=== PATIENT | female | born 1940 | race Caucasian/White ===

== ENCOUNTER 2016-07-01 16:41 | Emergency (ER) | payer OTHER ==
[~2016-07-01 16:41] MED LIST: /LINE60TA OR; /PANT40TA; /WARF2TA; /WARF5TA; ACET500C OR; ACET65TA; AMLO5TAB; APRESOLINE PO; AQUAOIN2; ASPI325T; ASPI81TA83 OR; BACITAB3 PO; BENA40TA2; BYST10TA2 PO; BYST5TAB2 PO; CALC05CR TOP; CALC1CAP PO; CEFT500T; CETI5TAB2; CHOLECALCIFEROL; CLIN1CAP5 PO; COLA100C3 PO; COUM1TAB; COUM2TAB10 PO; DARB100SYR IV; DARB60SYR; DEMA1TAB4 PO; DIAB2.5T; DIGO0.12 PO; DIGO0.126 OR; ELIDEL; FOLI1TAB; FOLI1TAB2 PO; FOLI400T OR; FOLI400T PO; FURO20TA2 PO; HYDR-4266 PO; KEFL500C7 PO; LAB; LANO0.1211; LOTRCRE TOP; METH2.5T; METH2.5T OR; MINEOIL3; MULTIVIT PO; NATE60TA PO; NATE60TA5 PO; NATEGLINIDE PO; NITR0.4S; NITR4TASL SL; NYST100024 TOP; NYSTATIN POWDER TOP; PHOS667C5 PO; PHOSLO PO; PHOSLO667 MG; PHOSLO667 MG OR; POTA10TA16 PO; PROT0.1O TOP; RHEU2.5T PO; SIMV20TA2 OR; SIMV40TA2 PO; SYNALAR; THERGRAN; TORS10TA3 PO; TRIA1CR TOP; TRIAMCINOLONE; TRIAMCINOLONE TOP; TYLE325T5 PO; ULTR0.0510 TOP; ULTR50TA PO; VENL37.5; VERA120T AD; VERA120T2 PO; VERAPAMIL; VICO5TAB; VITA250T; VITAMIN D50000 UNT; WARF4TAB52 PO; ZEBE5TAB; ZOCO20TA; ZOCO20TA PO; ZOCO5TAB; [UNRECOGNIZED DRUG - CODE] PO; [UNRECOGNIZED DRUG - OTHER]; [UNRECOGNIZED DRUG - OTHER]; [UNRECOGNIZED DRUG - OTHER]
[2016-07-01] MEDS ORDERED: NS 1,000 ML IV SCH (16:46)
[2016-07-01] MEDS ORDERED: WARF05TA GT (16:57)
[2016-07-01] MEDS ORDERED: ASPI81CH PO (16:57)
[2016-07-01] MEDS ORDERED: PLAV75TA38 PO (16:57)
[2016-07-01] MEDS ORDERED: COUM2TAB10 PO (16:57)
[2016-07-01] MEDS ORDERED: METO37.5 PO (16:57)
[2016-07-01] MEDS ORDERED: GLIP5TAB8 PO (16:58)
[2016-07-01] MEDS ORDERED: LISI-542 PO (16:58)
[2016-07-01] MEDS: METOPROLOL 5 MG/5 ML VIAL IV SCH ×3 (17:08→17:20)
[2016-07-01 17:11] VITALS: O2SAT 98
[2016-07-01 17:15] VITALS: BP 111/62
[2016-07-01 17:18] LABS: INR 2.71
[2016-07-01 17:19] LABS: BASO % 0.4 % (0.0-1.0); EOS # 0.7 K/mm3 (0.0-0.50); EOS % 6.4 % (0.0-3.0); LARGE UNSTAINED CELL # 0.1 K/mm3 (0.0-0.4); LARGE UNSTAINED CELL % 0.9 % (0.0-4.0); LYMPH # 1.4 K/mm3 (1.5-4.5); LYMPH % 13.1 % (24.0-44.0); MEAN CORPUSCULAR HEMOGLOBIN 28.2 pg (27.0-33.0); MEAN CORPUSCULAR HGB CONC 31.3 g/dl (32.0-36.5); MEAN CORPUSCULAR VOLUME 90.3 fl (80.0-96.0); MONO # 0.3 K/mm3 (0.0-0.8); MONO % 3.3 % (0.0-5.0); NEUTROPHILS # 7.8 K/mm3 (1.8-7.7); NEUTROPHILS % 75.9 % (36.0-66.0); PLATELET COUNT, AUTOMATED 189 k/mm3 (150-450); RED CELL DISTRIBUTION WIDTH 15.4 % (11.5-14.5); WHITE BLOOD COUNT 10.3 K/mm3 (4.0-10.0)
[2016-07-01 17:27] LABS: ALBUMIN 3.5 GM/DL (3.2-5.2); ALBUMIN/GLOBULIN RATIO 0.78 (1.00-1.93); BILIRUBIN,DIRECT 0.2 MG/DL (0.0-0.2); BILIRUBIN,TOTAL 0.8 MG/DL (0.2-1.0); CALCIUM LEVEL 8.1 MG/DL (8.8-10.2); CREATININE FOR GFR 2.22 MG/DL (0.55-1.02); FREE T4 1.46 NG/DL (0.76-1.46); GLOMERULAR FILTRATION RATE 22.9 (>39); POTASSIUM SERUM 3.7 MEQ/L (3.5-5.1)
[2016-07-01] MEDS ORDERED: ISOVUE-370 76% 100ML VIAL (Q9967) As Ordered ONE (17:48)
--- NOTE | 2016-07-01 18:12 | REP ---
Portable chest x-ray: Sitting AP view: History: Chest pain. Findings: A tunnel catheter is noted via the right side with its tip in the expected location of the superior vena cava. A bipolar pacemaker is seen in the right heart via the left side. EKG monitoring electrodes are noted. The lungs are symmetrically aerated and free of infiltrate. Pleural angles are sharp. Heart is not enlarged. The aorta is calcific and tortuous. There is diffuse osteopenia. Impression: No acute disease. Tunnel catheter and pacemaker seen. Signed by Rajiv Jasso MD 07/01/2016 07:55 P
[2016-07-01] MEDS ORDERED: AMIODARONE HCL 150 MG in APPROPRIATE DILUENT 1 EA IV STA (18:16)
[2016-07-01 18:41] LABS: DIGOXIN LEVEL 1.2 NG/ML (0.5-2.0)
--- NOTE | 2016-07-01 19:22 | REP ---
CT study of the brain without contrast: History: Injury in a fall. Findings: There are multiple calcified scalp nodules noted bilaterally. No skull fracture or bony destructive lesion is seen. There is a small air-fluid level in the sphenoid sinus. I do not see a skull base fracture. Mastoid aeration is normal and symmetric. The other paranasal sinuses are clear. No intraorbital abnormality is seen. There is diffuse mild to moderate cerebral atrophy. There is no evidence of intracranial hemorrhage. No extra-axial fluid collection is seen. No mass or midline shift is seen. Vascular calcification is seen in the distal vertebral and carotid arteries. No evidence of infarct. Impression: 1. No skull fracture or intracranial injury. 2. Vascular calcification and diffuse atrophy. 3. Multiple calcified scalp nodules noted bilaterally. Findings are essentially unchanged from 12/06/2007 although the diffuse atrophy has progressed somewhat. Signed by Rajiv Jasso MD 07/01/2016 07:57 P
--- NOTE | 2016-07-01 19:23 | REP ---
CT pulmonary angiogram: With IV contrast. History: Chest pain. Comparison studies: Comparison noncontrast chest CT study is from 07/08/2014. Contrast dose: 100 mL of Isovue [address] technique: Helical scanning is acquired and overlapping 1.5 mm and contiguous 3 mm axial images are reformatted. In addition, a 3-D work station is deployed to generate thick slab maximum intensity projection images in sagittal and coronal imaging projections. CT pulmonary angiographic findings: There is good opacification of the pulmonary arterial tree. There is no CT evidence of pulmonary embolism. Thoracic aorta shows vascular calcification but no evidence of aneurysm or dissection. There is left coronary artery vascular calcification as well. Maximum intensity projection images show no evidence of vessel cutoff or filling defect to suggest a thrombus. Pulmonary parenchymal window settings show no evidence of infiltrate, mass, or atelectasis. No pleural or pericardial effusion is seen. There is some linear fibrosis in the right lung apex. No bony destructive lesion is seen. Incidental note is made of cholelithiasis. A tunneled catheter is noted in place in the right internal jugular vein terminating in the superior vena cava. Impression: 1. No CT evidence of pulmonary embolism. 2. Vascular calcification including left coronary artery calcification. 3. Pacemaker and tunneled central venous catheter is noted. 4. Cholelithiasis. Signed by Rajiv Jasso MD 07/01/2016 07:57 P
--- NOTE | 2016-07-01 19:26 | REP ---
CT abdomen and pelvis with IV and without oral contrast: History: Chest pain. History of recent L1 compression fracture. Comparison CT abdomen study is from 08/13/2010. CT contrast dose: 100 mL of Isovue [address] findings: Digital preliminary sap data architect radiograph demonstrates an unremarkable bowel gas pattern. The liver and spleen are normal in size homogeneous in texture. Radiolucent gallstones are visible in the gallbladder lumen as before. No pancreatic abnormality is observed. There is marked bilateral renal cortical atrophy. No hydronephrosis is seen. No adrenal mass is observed. There is an accessory splenule. No retroperitoneal mass or adenopathy is seen. Small and large bowel loops are unremarkable in the abdomen and pelvis. No uterine or adnexal mass lesion is seen. A short normal appendix is visible just medial to the cecal tip. There appear to be arterial stents in the proximal renal arteries bilaterally. Bone window settings show degenerative spondylosis changes in the lumbar spine. In addition, there is a mild wedge compression fracture deformity at the L1 vertebral body with approximate 20% loss of anterior vertebral body height and buckling of the anterior cortex. There is some healing sclerosis in the L1 vertebral body indicating that this is a subacute injury. No visible retropulsion or epidural fluid collection seen. There is degenerative disc disease at L1-L2 and at T12-L1 with vacuum phenomenon at these two levels. Mild posterior osteophytic ridging is seen on the right at L1-L2. There is central disc bulging and moderate central canal stenosis in the lumbar spine at L3-4. This is due in part also to ligamentum flavum and facet hypertrophy. At the L4-5 there is degenerative disc disease and advanced osteoarthritic facet disease bilaterally producing a degenerative grade 1 L4-5 3 mm spondylolisthesis. There is mild to moderate central canal stenosis at L4-5. There is mild central disc bulging to the left midline at L5-S1 but no significant thecal sac compression is seen. No bony destructive lesion is seen. No abdominal wall defect is observed. Impression: 1. Cholelithiasis. 2. Marked bilateral renal cortical atrophy, right greater than left. 3. No other acute intra-abdominal abnormality. 4. Subacute wedge compression fracture deformity at L1 with healing sclerosis and 20% loss vertebral body height. No evidence of retropulsion or epidural collection. 5. Degenerative spondylosis changes with significant central canal stenosis at L3-4 and L4-5 and a degenerative grade 1, L4-5 spondylolisthesis. No spondylolysis. Signed by Rajiv Jasso MD 07/01/2016 07:58 P
[2016-07-01] MEDS ORDERED: METO25TAB PO (20:37)
[2016-07-01] MEDS ORDERED: ASPI81TA7 PO (20:37)
[2016-07-01] MEDS ORDERED: WARF4TAB51 PO (20:42)
[2016-07-01] MEDS ORDERED: VERA120T2 PO (20:45)
[2016-07-01] MEDS ORDERED: CINA30TA PO (20:45)
[2016-07-01] MEDS ORDERED: PATIENT COMMENT (20:45)
[2016-07-02 00:19] VITALS: BP 143/62
--- NOTE | 2016-07-02 07:28 | ECGEPIP ---
Stationary ECG Study [facility] Test Date: 2016-07-01 Pat Name: POONAM TURNER Department: Room: - Gender: F Director Payer: : 1940 Requested By: Sarah Licona Order Number: [id number] Reading MD: Ramo Grissom Measurements Intervals [place] Rate: 60 P: 145 [place]: 176 QRS: 61 QRSD: 108 T: 68 QT: 393 QTc: 393 Interpretive Statements ELECTRONIC ATRIAL PACEMAKER NONSPECIFIC ST & T-WAVE ABNORMALITY ABNORMAL RHYTHM ECG Electronically Signed On 07-02-2016 7:28:18 EDT by Ramo Grissom
--- NOTE | 2016-07-02 20:18 | ECGEPIP ---
Stationary ECG Study [facility] - ED Test Date: 2016-07-01 Pat Name: POONAM TURNER Department: Room: - Gender: F Stewarding Supervisor: dannie : 1940 Requested By: Sarah Licona Order Number: [id number] Reading MD: Vanessa Ribera Measurements Intervals [place] Rate: 126 P: [place]: 0 QRS: 54 QRSD: 94 T: 97 QT: 308 QTc: 446 Interpretive Statements ATRIAL FIBRILLATION WITH RAPID VENTRICULAR RESPONSE WITH ABERRANT CONDUCTION OR VENTRICULAR PREMATURE COMPLEXES MINIMAL VOLTAGE CRITERIA FOR LVH, CONSIDER NORMAL VARIANT MARKED ST DEPRESSION, CONSIDER SUBENDOCARDIAL INJURY, CLINICAL CORRELATION PRIOR 21:53 Electronically Signed On 07-02-2016 20:17:38 EDT by Vanessa Ribera
--- NOTE | 2016-07-02 20:22 | ECGEPIP ---
Stationary ECG Study [facility] - ED Test Date: 2016-07-01 Pat Name: POONAM TURNER Department: Room: - Gender: F Sports Athletic Trainer: : 1940 Requested By: Sarah Licona Order Number: [id number] Reading MD: Vanessa Ribera Measurements Intervals [place] Rate: 78 P: 92 [place]: 180 QRS: 48 QRSD: 97 T: 53 QT: 356 QTc: 407 Interpretive Statements SINUS RHYTHM MODERATE ST DEPRESSION INCREASED RATE 07/01/16 Electronically Signed On 07-02-2016 20:22:43 EDT by Vanessa Ribera
== END 2016-07-02 00:26 | disposition short-term general hospital (02) ==
LOC: M ED 17:24
DX: I21.4 Non-ST elevation (NSTEMI) myocardial infarction (principal); R93.0 Abnormal findings on diagnostic imaging of skull and head, not elsewhere classified; M51.36 Other intervertebral disc degeneration, lumbar region; K80.20 Calculus of gallbladder without cholecystitis without obstruction; N26.1 Atrophy of kidney (terminal); I70.90 Unspecified atherosclerosis; Z95.0 Presence of cardiac pacemaker; I25.10 Atherosclerotic heart disease of native coronary artery without angina pectoris; I25.2 Old myocardial infarction; E11.9 Type 2 diabetes mellitus without complications; I10 Essential (primary) hypertension; Z95.5 Presence of coronary angioplasty implant and graft; Z79.82 Long term (current) use of aspirin; Z79.899 Other long term (current) drug therapy; Z79.01 Long term (current) use of anticoagulants; Z88.1 Allergy status to other antibiotic agents; Z88.0 Allergy status to penicillin; Z88.2 Allergy status to sulfonamides; Z88.8 Allergy status to other drugs, medicaments and biological substances
CPT/HCPCS: 70450; 71010; 71275; 74177; 80048; 80076; 80162; 82550; 82553; 83690; 83735; 83880; 84439; 84443; 84484; 85025; 85610; 85730; 86850; 86900; 86901; 93005; 93041; 94760; 96361; 96374; 96375; 99285; Q9967

== ENCOUNTER 2016-10-21 09:01 | Day surgery (SDC) | payer OTHER ==
[~2016-10-21] VITALS: Ht 162.6 cm; Wt 60.8 kg
[~2016-10-21 09:01] MED LIST changes: +ASPI1TAB15 PO; +ASPI81CH PO; +BACITAB PO; -BACITAB3 PO; +CINA30TA PO; +CLIN150C14 PO; -CLIN1CAP5 PO; -COLA100C3 PO; +COLA100C5 PO; -COUM2TAB10 PO; +COUM2TAB22 PO; +D5W/0.2% SODIUM CHLORIDE 250 ML IV ONE; +FAMO1TAB11 PO; -FOLI1TAB2 PO; +FOLI1TAB4 PO; +GLIP5TAB8 PO; +HYDR-3910 PO; -HYDR-4266 PO; +KEFL500C17 PO; -KEFL500C7 PO; +LISI-542 PO; +METO-346 PO; +METO25TA4 PO; +METO37.5 PO; +NS 1,000 ML IV SCH; -NYST100024 TOP; +NYST1POW9 TOP; +PATIENT COMMENT; +PLAV1TAB2 PO; -ULTR50TA PO; +ULTR50TA8 PO; +WARF05TA GT; +WARF4TAB51 PO
[2016-10-21 09:43] LABS: INR 1.03
[2016-10-21 10:05] LABS: POTASSIUM SERUM 4.6 MEQ/L (3.5-5.1)
[2016-10-21] MEDS ORDERED: fentaNYL 100 MCG/2 ML INJECTION (J3010) As Ordered ONE (10:53)
[2016-10-21] MEDS ORDERED: MIDAZOLAM INJ 2 MG/2 ML VIAL (J2250) As Ordered ONE (10:53)
[2016-10-21] MEDS ORDERED: LIDOCAINE 2% INJ 100 MG/5 ML SDV (FOR ANES.) As Ordered ONE (10:53)
[2016-10-21] MEDS ORDERED: PROPOFOL 200 MG/20 ML VIAL As Ordered ONE (10:53)
[2016-10-21] MEDS ORDERED: LR 500 ML IV ONE (11:15)
[2016-10-21 11:22] LABS: CALCIUM LEVEL 8.9 MG/DL (8.8-10.2); CREATININE FOR GFR 6.53 MG/DL (0.55-1.02); GLOMERULAR FILTRATION RATE 6.6 (>39)
[2016-10-21] MEDS ORDERED: LIDOCAINE 1% SDV INJ 30 ML VIAL As Ordered ONE (11:30)
[2016-10-21] MEDS ORDERED: HEPARIN SOD (PORCINE) 5000 UNITS/ML VIAL As Ordered ONE (11:30)
[2016-10-21] MEDS ORDERED: ONDANSETRON 4MG/2ML VIAL (J2405) As Ordered ONE (13:14)
[2016-10-21] MEDS ORDERED: DEXTROSE 50% 50 ML SYRINGE As Ordered ONE (14:16)
[2016-10-21] MEDS ORDERED: DEXTROSE 50% 50 ML SYRINGE IV ONE (15:00)
[2016-10-21 15:30] VITALS: BP 153/70
--- NOTE | 2016-10-23 14:41 | RO ---
DATE OF PROCEDURE: 10/21/2016 PREOPERATIVE DIAGNOSIS: End-stage renal disease. POSTOPERATIVE DIAGNOSIS: End-stage renal disease. PROCEDURE PERFORMED: Implantation of continuous ambulatory peritoneal dialysis catheter. SURGEON: Dr. Mj Dubose FLAT SPRING ASSEMBLER: ANESTHESIA: Local, 1% Xylocaine with monitored anesthesia care INDICATIONS FOR PROCEDURE: The patient is a 76-year-old woman who has been on hemodialysis via a chest catheter for some time. She is now for placement of a peritoneal dialysis catheter to allow home dialysis. DESCRIPTION OF PROCEDURE: The patient was placed supine on the operating table. She received sedation from anesthesia. The patient's abdomen was prepped and draped in a sterile fashion. A site was selected in the left lower quadrant for placement of the catheter. 1% lidocaine was infiltrated. A roughly 4-5 cm longitudinal paramedian incision was made beginning just about at the level of the umbilicus and extending inferiorly. The incision was deepened through the subcutaneous tissues. The anterior rectus sheath was opened longitudinally. The rectus muscle fibers were spread and a small opening was created through the posterior fascia and peritoneum. A pursestring suture of #2-0 Vicryl was placed around the opening in the peritoneum. The 62-cm double-pledgeted Campbell peritoneal dialysis catheter was selected. This was placed over a long stylet. Unfortunately, the stylet was slightly shorter than the catheter, so it was necessary to insert the tip of the catheter into the opening using forceps and then advance the stylet into the abdomen. This was placed with the patient in a slight Trendelenburg position and with elevation of the anterior abdominal wall. The catheter was then slipped off of the stylet without difficulty. The pursestring suture was tied down, closing the peritoneum. It was necessary to place an additional one or two Vicryl sutures to better approximate this opening. The catheter was positioned with the inner pledget just adjacent to the peritoneum. The pursestring suture was tied about the pledget to prevent the catheter from slipping back. The rectus muscle fibers were allowed to come together about the pledget and the anterior sheath was then closed with a running suture of #0 Vicryl. The catheter was tunneled through the subcutaneous tissues to the left and inferiorly, and the catheter was brought through a small stab wound in the skin. The infusion port was attached to the end of the catheter. Approximately 1 liter of sterile saline was then allowed to infuse while the paramedian incision was closed. Hemostasis was ensured with the cautery. The subcutaneous tissues were closed with chromic, and the skin edges were approximated with a running subcuticular #4-0 Vicryl. Once the fluid was nearly completely infused, with the patient had a slight reverse Trendelenburg position , the bag was dropped to the floor and approximately 800 mL of fluid returned by gravity siphon. The patient tolerated all of this very well. The catheter was filled with 1 mL 5000 units/mL heparin and approximately 1.2 mL of sterile saline. The catheter exit site was dressed with a chlorhexidine gluconate OpSite. Steri-Strips and a sterile dressing were placed over the paramedian incision. The catheter was coiled beneath a 4 x 4 and an occlusive dressing of OpSite bandages was applied. The patient tolerated the procedure well without apparent complication. She was awakened and transported to advanced recovery in stable condition. SHERYL
[2016-12-31] MEDS ORDERED: AMOX500C PO (09:56)
== END 2016-10-21 15:35 | disposition home or self-care (01) ==
LOC: M SDC 09:01 → EEVIPCON 09:01 → M SDC 15:35
PROVIDERS: ATTEND Surgery
DX: N18.6 End stage renal disease (principal); E11.9 Type 2 diabetes mellitus without complications; I48.91 Unspecified atrial fibrillation; I25.2 Old myocardial infarction; I50.9 Heart failure, unspecified; Z79.02 Long term (current) use of antithrombotics/antiplatelets; I73.9 Peripheral vascular disease, unspecified; Z98.61 Coronary angioplasty status; Z95.0 Presence of cardiac pacemaker; Z79.899 Other long term (current) drug therapy; Z88.0 Allergy status to penicillin; Z88.2 Allergy status to sulfonamides; Z88.8 Allergy status to other drugs, medicaments and biological substances
CPT/HCPCS: 36415; 49421; 80048; 85610; J0690; J2250; J2405; J3010

== ENCOUNTER → 2016-12-03 | Outpatient (REF) | payer OTHER ==
[~2016-12-03] MED LIST changes: +AMOX500C PO; -D5W/0.2% SODIUM CHLORIDE 250 ML IV ONE; -NS 1,000 ML IV SCH; +RENATAB5 PO; +WARF05TA
== END ==
LOC: M SFHCCLAY 16:19
PROVIDERS: ATTEND Family Medicine
DX: N39.0 Urinary tract infection, site not specified (principal)

== ENCOUNTER 2016-12-19 12:24 | Inpatient (IN) | payer MEDICARE, OTHER ==
[2016-12-19] VITALS (14 sets, daily range): BP systolic 130–183; BP diastolic 61–88
[~2016-12-19] VITALS: Ht 162.6 cm; Wt 63.2 kg
[~2016-12-19 12:24] MED LIST changes: -AMOX500C PO; -RENATAB5 PO; -WARF05TA
[2016-12-19] MEDS ORDERED: WARF05TA (12:38)
[2016-12-19 13:21] LABS: BASO % 0.2 % (0.0-1.0); EOS # 0.1 10^3/uL (0.0-0.50); EOS % 2.3 % (0.0-3.0); IMMATURE GRANULOCYTE % 0.2 % (0-0); LYMPH # 1.2 10^3/uL (1.5-4.5); LYMPH % 21.3 % (24.0-44.0); MEAN CORPUSCULAR HEMOGLOBIN 30.2 pg (27.0-33.0); MEAN CORPUSCULAR HGB CONC 32.2 g/dl (32.0-36.5); MEAN CORPUSCULAR VOLUME 93.9 fl (80.0-96.0); MONO # 0.4 10^3/uL (0.0-0.8); MONO % 6.8 % (0.0-5.0); NEUTROPHILS % 69.2 % (36.0-66.0); PLATELET COUNT, AUTOMATED 143 10^3/uL (150-450); RED CELL DISTRIBUTION WIDTH 16.1 % (11.5-14.5); WHITE BLOOD COUNT 5.7 10^3/uL (4.0-10.0)
[2016-12-19 13:45] LABS: ALBUMIN 2.8 GM/DL (3.2-5.2); ALBUMIN/GLOBULIN RATIO 0.68 (1.00-1.93); BILIRUBIN,DIRECT 0.2 MG/DL (0.0-0.2); BILIRUBIN,TOTAL 0.7 MG/DL (0.2-1.0); TOTAL PROTEIN 6.9 GM/DL (6.4-8.2)
[2016-12-19 14:06] LABS: INR 1.4
[2016-12-19 14:06] LABS: CALCIUM LEVEL 8.5 MG/DL (8.8-10.2); CREATININE FOR GFR 5.21 MG/DL (0.55-1.02); GLOMERULAR FILTRATION RATE 8.5 (>39); POTASSIUM SERUM 3.2 MEQ/L (3.5-5.1)
--- NOTE | 2016-12-19 14:14 | REP ---
REASON: Dyspnea. COMPARISON: 07/01/2016 Since the last examination, near complete opacification of the right hemithorax has developed. The central venous catheter is unchanged. The pacemaker device is unchanged. There is silhouetting out of the right border. The left lung is clear and stable. There is no change in the osseous structures. IMPRESSION: Near complete opacification of the right hemithorax suggesting diffuse pneumonitis/large pleural effusion/marked atelectasis. Clinical correlation is necessary. Other findings as described above. Signed by Gee Corbett DO 12/19/2016 02:19 P
[2016-12-19] MEDS ORDERED: METO25TA4 PO (14:56)
[2016-12-19] MEDS ORDERED: WARF4TAB52 PO ×2 (14:56)
[2016-12-19] MEDS ORDERED: RENATAB5 PO (14:56)
[2016-12-19 15:53] LABS: ABG BASE EXCESS 6.5 (-2.0-2.0); ABG HCO3 31.3 MEQ/L (22.0-26.0); ABG PARTIAL PRESSURE CO2 45.7 mmHg (35.0-45.0); ABG PARTIAL PRESSURE O2 121.2 mmHg (75.0-100.0); ABG STANDARD HCO3 30.4 MEQ/L (22.0-26.0); ABG TOTAL CO2 32.7 MEQ/L (23.0-31.0); ABG pH (ARTERIAL) 7.453 UNITS (7.350-7.450)
[2016-12-19] MEDS ORDERED: GLUCOSE 4 GM CHEW TABLET PO PRN (16:00)
[2016-12-19] MEDS ORDERED: GLUCAGON FOR INJ 1 MG VIAL (J1610) SC PRN (16:00)
[2016-12-19] MEDS ORDERED: DEXTROSE 50% 50 ML SYRINGE IV PRN (16:00)
[2016-12-19] MEDS ORDERED: NITROGLYCERIN 0.4 MG SUBL TABLET SL PRN (16:00)
[2016-12-19] MEDS ORDERED: DOCUSATE SODIUM 100 MG CAP PO PRN (16:00)
[2016-12-19] MEDS ORDERED: ONDANSETRON 4 MG TAB (S0181) PO PRN (16:00)
--- NOTE | 2016-12-19 17:24 | HPEPDOC ---
[facility] Medical History & Physical History and Physical PRIMARY CARE PROVIDER: Dr. Soto CHIEF COMPLAINT: Shortness of breath HISTORY OF PRESENT ILLNESS: Patient is a 76-year-old female who presents with a 3 day history of worsening shortness of breath. Patient was brought into the ER today due to worsening shortness of breath, tachypnea, oxygen saturation in the low 80s. Her who is a retired physician listen to her lungs and was unable to appreciate any breath sounds on her right side. She additionally reports that she was becoming diaphoretic with activity. She denies any chills, sweats. She does report weight loss of approximately 40 pounds over the last couple years. She is complaining of tightness and pressure across her chest which she gets with activity. ALLERGIES: Azithromycin, clavulanic acid, penicillin, penicillin cross reactors, quinolones , sulfa drugs, tazobactam, tetracycline PAST MEDICAL HISTORY: Atrial fibrillation Hypertension Hyperlipidemia Psoriasis DVT with pulmonary embolism: May 2012 Yiy-fahnlcy-clepibqgl diabetes mellitus Depression End-stage renal disease PAST SURGICAL HISTORY: Pacemaker Left ureteral stent SOCIAL HISTORY: Patient lives at home with her . She is a nonsmoker. She does not drink any alcohol. She does not use any recreational drugs. She drinks 2 cups of coffee daily. CODE STATUS: DNR/DNI REVIEW OF SYSTEMS: Constitutional: Positive for sweats, reported weight loss of approximately 40 pounds over the last couple years. Denies fevers, chills. HEENT: Head: Positive for lightheadedness. Eyes: Positive for chronic macular degeneration. Ears: denies hearing loss, tinnitus, ear pain. Nose: Positive for congestion. Throat: denies sore throat, cough, difficulty swallowing Cardiovascular: Positive for tightness and pressure and chest which is described as diffuse and worse with activity Respiratory: Positive for worsening shortness of breath for duration of the last 3 days Gastrointestinal: Positive for bright red blood per rectum, currently on Plavix and Coumadin. denies nausea, vomiting, diarrhea, constipation, abdominal pain, melena : Positive for end-stage renal disease, minimal urine output, incontinence Musculoskeletal: denies muscle / joint stiffness, pain, swelling Neurological: denies numbness, tingling, paresthesias Integumentary: Positive for diffuse easy bruising, currently on Plavix and Coumadin Endocrine: Positive for polydipsia PHYSICAL EXAMINATION: Vitals: Temperature 96.0, pulse 66, respiratory rate 22, blood pressure 163/93, pulse ox 100% on 4 L nasal cannula General: Patient seated comfortably, alert and oriented, verbal and able to answer questions appropriately. Patient does not appear to be in any acute distress HEENT: Head: normocephalic, atraumatic. Eyes: pupils equally reactive to light , conjunctiva are pink, sclera are nonicteric. Throat: buccal mucosa is pink and moist with no lesions in the oropharynx Respiratory: There are absent breath sounds present on right side of chest, wheezing on left-sided chest Cardiovascular: Regular rate and rhythm, normal S1-S2. 3/6 systolic murmur best appreciated at lower left sternal border Abdomen: soft, nontender, nondistended, no hepatosplenomegaly appreciated. Bowel sounds present. Extremities: 5/5 strength in upper and lower extremities bilaterally, no swelling in either lower extremity bilaterally Neurological: sensation intact and symmetrical in upper and lower extremities bilaterally Lymphatics: no palpable lymph nodes, swollen glands Integumentary: Positive for diffuse bruising Vascular: pulses palpable and symmetrical in upper and lower extremities bilaterally LABORATORY DATA: CBC: White blood cells 5.7, hemoglobin and hematocrit 11.3/35.1, platelets 143 Chemistry: Sodium 143, potassium 3.2, chloride 103, carbon dioxide 33, BUN 38, creatinine 5.21, calcium 8.5 Liver profile: AST 17, ALT 18, alkaline phosphatase 55, total protein 6.9, albumin 2.8 TSH 1.090 C-reactive protein 0.40 Cardiac markers: Troponin I 0.04, CK-MB 3.5 ProBNP 42904 Coagulation: PT 17.4, INR 1.40, APTT 29.3 MICROBOIOLOGY: Respiratory panel: Negative Influenza screen: Negative Blood culture 2 pending ELECTROCARDIOGRAM: Sinus rhythm at [address] depression RADIOLOGY: Chest x-ray: Near complete opacification of right hemithorax suggestive of diffuse pneumatosis/large pleural effusion/marked atelectasis Chest CT: Very large right pleural effusion, small left pleural effusion ASSESSMENT: 76-year-old female with bilateral pleural effusion (right >>left). She will require admission for further evaluation and treatment. PLAN: #1: Pleural effusion: Admit patient to PCU under care of Dr. Soto. Orders placed to monitor daily weight, I's and O's, vital signs as stated of care. Thoracic surgery consult was placed. Etiology of pleural effusion unclear at this time, we will follow-up results from thoracentesis when available. Further management as per results of thoracentesis. We will monitor daily CBC #2: End-stage renal disease: Nephrology consult with Dr. Vegas placed. Order placed for daily renal profile #3: Atrial fibrillation: Due to uncertain etiology of pleural effusion we will hold Plavix and warfarin at this time #4: Hypertension: Order placed for home dose of metoprolol 25 mg by mouth twice a day (hold for heart rate less than 60, systolic blood pressure less than 100) #5: Qvp-txkrkpl-dhavmxlsp diabetes mellitus: We will hold home glipizide, order placed for sliding scale insulin #6: Dyslipidemia: Order placed for home dose of simvastatin 20 mg by mouth daily at bedtime #7: DVT prophylaxis: Order placed for teds and sequentials My preceptor for this patient encounter was physically present in the building during the encounter and was fully available. As needed, all aspects of the patient interview, examination, medical decision making process, and medical care plan development were reviewed and approved by the preceptor. Preceptor is aware and concurs with the plan as stated in the body of this note and will attest to such by his/her cosignature. Laboratory Data CBC/BMP Laboratory Tests 12/19/16 13:00 Red Blood Count 3.74 L, Mean Corpuscular Volume 93.9, Mean Corpuscular Hemoglobin 30.2, Mean Corpuscular Hemoglobin Concent 32.2, Red Cell Distribution Width 16.1 H, Neutrophils (%) (Auto) 69.2 H, Lymphocytes (%) (Auto ) 21.3 L, Monocytes (%) (Auto) 6.8 H, Eosinophils (%) (Auto) 2.3, Basophils (%) (Auto) 0.2, Neutrophils # (Auto) 4.0, Lymphocytes # (Auto) 1.2 L, Monocytes # ( Auto) 0.4, Eosinophils # (Auto) 0.1, Basophils # (Auto) 0.0, Calcium Level 8.5 L , Total Creatine Kinase 69 Microbiology Microbiology 12/19/16 Blood Culture, Received Pending 12/19/16 Blood Culture, Received Pending 12/19/16 Influenza Virus Type A Antigen - Final, Complete 12/19/16 Influenza Virus Type B Antigen - Final, Complete 12/19/16 Respiratory Virus Panel (PCR) (ANAMIKA) - Final, Complete Home Medications Scheduled (Kamila-Randal) 1 Tab Tab, 1 TAB PO DAILY Amoxicillin (Amoxicillin) 500 Mg Cap, 500 MG PO Q8H Cinacalcet Hydrochloride (Sensipar) 30 Mg Tab, 30 MG PO Q2D Clopidogrel Bisulfate (Plavix) 75 Mg Tab, 75 MG PO DAILY Folic Acid (Folic Acid) 1 Mg Tab, 1 MG PO 3XW TUESDAY, TUESDAY, TUESDAY Glipizide (Glipizide) 5 Mg Tab, 5 MG PO DAILY Metoprolol Tartrate (Metoprolol Tartrate) 25 Mg Tab, 25 MG PO BID Simvastatin (Zocor) 20 Mg Tab, 20 MG PO QHS Warfarin Sod (Warfarin Sodium) 1 Mg Tab, 2 MG PO 2XW MON, FRI Warfarin Sod (Warfarin Sodium) 1 Mg Tab, 1.5 MG PO 5XW SUN,,TUE,,SAT Scheduled PRN Nitroglycerin (Nitrostat) 0.4 Mg Subl, 0.4 MG SL Q5MP PRN for CHEST PAIN Allergies Coded Allergies: Clavulanic Acid (Verified Allergy, Severe, rash with blisters, 12/31/16) Quinolones (Verified Allergy, Severe, SEVERE DERMATITIS, 12/31/16) Penicillins (Verified Allergy, Intermediate, PUSTULAR SKIN RXN, 12/31/16) Penicillins Cross Reactors (Verified Allergy, Intermediate, PUSTULAR SKIN RXN, 12/31/16) Sulfa Drugs (Verified Allergy, Intermediate, HIVES,PSORIASIS, 12/31/16) Sulfa Drugs Cross Reactors (Verified Allergy, Intermediate, HIVES, PSORIASIS, 12/31/16) Tazobactam (Verified Allergy, Intermediate, PUSTULAR SKIN RXN, 12/31/16) Azithromycin (Verified Allergy, Unknown, rash, 12/31/16) Attending Note Family Medicine Attending Note: I was present on site to supervise Katie Thomas D.O. (PGY-3). We discussed the history and exam. I confirmed the davies elements during my [id number] encounter with the patient. We conferred on the assessment and plan; I agree with the note as documented. (gastroenterology physician) KATIE THOMAS DO Dec 19, 2016 17:24 Abram Asencio MD Jan 11, 2017 20:21
[2016-12-19] MEDS: HumaLOG INSULIN (NovoLOG) PER UNIT SC SCH ×2 (17:30→21:00)
[2016-12-19] MEDS ORDERED: MIDAZOLAM INJ 2 MG/2 ML VIAL (J2250) As Ordered ONE (19:05)
[2016-12-19] MEDS ORDERED: LIDOCAINE 1% MDV 20ML VIAL As Ordered ONE (19:06)
[2016-12-19] MEDS ORDERED: FLUMAZENIL 0.5 MG/5 ML VIAL As Ordered ONE (19:07)
[2016-12-19] MEDS ORDERED: LEVALBUTEROL 1.25 MG/0.5 ML CONCENTRATE NEB NEB PRN (19:45)
[2016-12-19] MEDS ORDERED: BISACODYL 10 MG SUPP PR PRN (19:45)
[2016-12-19 20:28] LABS: LDH, BODY FLUID 24 U/L (NOT ESTABLISHED); TOTAL PROTEIN, BODY FLUID 0.3 G/DL (NOT ESTABLISHED)
[2016-12-19 20:29] LABS: BF MONONUCLEAR CELL % 80.6 % (0-0); BF POLYMORPHONUCLEAR CELL % 19.4 CELLS/uL (0-0); RBC BODY FLUID < 2000.000 CELLS/uL (<2000)
[2016-12-19 20:41] LABS: BF DIFF IF INDICATED? YES (NO)
[2016-12-19] MEDS: LEVALBUTEROL 1.25 MG/0.5 ML CONCENTRATE NEB NEB SCH (20:50)
[2016-12-19] MEDS: KETOROLAC 30 MG/ML VIAL (J1885) IV SCH ×2 (21:00→21:42)
[2016-12-19] MEDS: SIMVASTATIN 20 MG TAB PO SCH (21:41)
[2016-12-19] MEDS: HEPARIN SOD (PORCINE) 5000 UNITS/ML VIAL SC SCH (21:41)
[2016-12-19] MEDS: METOPROLOL TART 25 MG TABLET PO SCH (21:41)
--- NOTE | 2016-12-19 21:47 | CR ---
DATE OF CONSULTATION: 12/19/2016 The patient is seen at the request of Dr. Morales of the emergency room and Dr. Vegas of nephrology. HISTORY OF PRESENT ILLNESS: The patient is a 76-year-old white female who complains of increasing shortness of breath over the past 3 days. She has end stage renal disease, for which she was on hemodialysis, but started peritoneal dialysis approximately 3 months ago. Over the past 3 days she has become much more short of breath to such an extent that even just slightly moving around the house makes her short of breath. She denies having peripheral edema. She further denies orthopnea or paroxysmal nocturnal dyspnea. There has been no cough. No sputum production. No fever, chills, or sweats. There is no dysphagia. She has a reported 40 pound weight loss over the past 2 years. Chest x-ray was obtained in the emergency room, which showed complete opacification of the right hemithorax, and she was then sent for a CT, which confirmed the same with severe compression of the right lung. PAST MEDICAL ILLNESSES: 1. Atrial fibrillation. 2. Coronary artery disease, status post two myocardial infarctions in the past. 3. Hyperlipidemia. 4. Psoriasis. 5. Deep vein thrombosis (DVT) with pulmonary embolism in May 2012. 6. Diabetes mellitus, which she states is "prediabetes." 7. Depression. 8. End stage renal disease. PAST SURGICAL HISTORY: She has had a pacemaker placed and left ureteral stent. ALLERGIES: ERYTHROMYCIN, CLAVULANIC ACID, PENICILLIN, QUINOLONE, SULFA DRUGS, TAZOBACTAM, TETRACYCLINE. MEDICATIONS: At home: - Sensipar 30 mg by mouth every other day - Plavix 75 mg by mouth daily - folic acid 1 mg Tuesday, Tuesday and Tuesday - glipizide 5 mg daily - metoprolol 25 mg twice a day - simvastatin 20 mg at night - Coumadin 2 mg Tuesday and Tuesday and 1.5 mg Tuesday, Tuesday, Tuesday, and Tuesday. - nitroglycerin 0.4 mg sublingually as needed for chest pain TRAVEL HISTORY: She has been to the [facility] and to [place]. No travel to the [facility]. She has been to [place]. EXPOSURES: No cats or birds, but does have a dog, Labrador Retriever. HABITS: Does not smoke. Does not drink. No illicit drugs. OCCUPATIONAL HISTORY: Used to work as a teacher in grades 4, 5, and 6 in the remote past. FAMILY HISTORY: Father of lung cancer and psoriasis. REVIEW OF SYSTEMS: CONSTITUTIONAL: See history of present illness. Reported 40 pound weight loss over 2 years. EYES: Without diplopia. Without transmonocular blindness. Without prior jaundice. NOSE: Without epistaxis. MOUTH: Has her own teeth. PULMONARY: See history of present illness. CARDIAC: See history of present illness. Without orthopnea or paroxysmal nocturnal dyspnea. Two myocardial infarctions in the past and she is on Plavix. Without intermittent claudication or peripheral edema. GASTROINTESTINAL: Without nausea, vomiting, diarrhea, constipation, melena, hematochezia, hematemesis, abdominal pain. GENITOURINARY: Without dysuria. Without hematuria. Has renal failure. She puts out very little urine. NEUROLOGIC: Without paresthesia, paralyses, or transmonocular blindness. Without prior seizures. SKIN: Has psoriasis. ENDOCRINE: Denies diabetes, but states that she has "prediabetes," although she is on glipizide. Without thyroid disease. HEMATOLOGIC: Denies prolonged bleeding times. Does have easy bruising. PSYCHIATRIC: Without pathological psychoses or anxieties. Is being treated for depression. LYMPHATICS: Without lumps, bumps in her neck, axilla or groin. PHYSICAL EXAMINATION: VITAL SIGNS: Temperature is 96.9 with a heart rate of 70 in a sinus rhythm, respiratory rate of about 24 without the use of accessory muscles who is 98% saturated on room air. Blood pressure is 138/82. Eyes: Pupils equal, round and reactive to light. Extraocular motor intact. Sclerae nonicteric. Nose: Without deformity. Mouth: Mucous membranes are pink and moist. Lips and commissures without lesions. She is missing a number of teeth, but those that remain look to be in good repair. There is no thrush. Neck is supple. There is no jugular venous distention (JVD). No subcutaneous emphysema. Trachea is midline. There is no lymphadenopathy and no thyromegaly. She has 2+ carotid upstrokes with a transmitted murmur. No bruits. Lungs: Percussion note is dull on the right side all the way up to the apex. She has E-to-A egophony on the right side. She has markedly decreased breath sounds on the right side. Left side shows expiratory wheezing throughout. Percussion note is full to the diaphragm. I hear no rales. Cardiac exam shows a 3/6 blowing harsh murmur heard best at the left sternal border of the apex. It is holosystolic and sounds like mitral disease. I cannot feel her PMI. Abdomen is soft, nontender. Bowel sounds are positive. There is no hepatomegaly. No costovertebral angle tenderness. Neurologic: Shows II-XII intact along with gross motor and gross sensation intact. Gait is not tested. Extremities show no pretibial edema, no calf tenderness. No differential swelling of the upper extremities. Skin is warm, dry and perfused without cyanosis or mottling, including that of the nail beds and the knees. She has bilateral psoriasis under both breasts. Psychiatric: Shows her to be awake and alert, oriented times three with appropriate mood and affect and conversational. INVESTIGATIONS: Her white count is 5.7 with a hemoglobin and hematocrit of 11.3 and 35.1 with a platelet count of 143. Differential shows 69% neutrophils, 21% lymphocytes, 6% monocytes. There are no immature forms. No toxic granulations. Chemistries today show a potassium of 3.2, sodium 143. BUN and creatinine are 38 and 5.21, respectively. Glucose is 143 with a calcium of 8.5. Corresponding albumin is 2.8. Her chest x-ray shows complete opacification of the right hemithorax. There is a little bit of aeration at the very cupula of the chest. There is a hemodialysis catheter in place, as well as a dual chamber pacemaker in the left side. Left costophrenic angle looks sharp. Lateral chest x-ray is difficult to interpret with regard to infiltrates, as the fluid is almost at the cupula of the chest. Her chest CT confirms that the opacification is indeed fluid. She has severe lung compression. There is no pericardial effusion. There is a small right sided pleural effusion. I see no masses on the left side. Her right and left adrenals look intact. Liver also looks intact, although slightly small. There is some lumpy and bumpy contours of the liver. She has a large gallbladder with multiple lucent stones. Pancreas looks to have a normal configuration with a calcified splenic artery. I see no mediastinal lymphadenopathy. IMPRESSION: 1. Right sided pleural effusion. 2. Shortness of breath secondary to #1. 3. History of atrial fibrillation, now in sinus rhythm. 4. Hypertension. 5. History of myocardial infarctions times two with coronary artery disease. 6. Hyperlipidemia. 7. Psoriasis. 8. History of deep vein thrombosis (DVT) and pulmonary embolus in 2013. 9. Non insulin dependent diabetes. 10. Depression. 11. End stage renal failure on dialysis. 12. Severe mitral regurgitation. PLAN/DISCUSSION: The first order of business will be to drain her fluid. My suspicion is that this represents peritoneal dialysis fluid. It has probably accumulated over the last couple of weeks and has gotten particularly acute over the last 3 days. I am surprised that she is not more short of breath, but she has obviously excellent compensatory self autoregulation capabilities with all the blood going to the left side and little going to the right side creating little venous add mixture. After draining her fluid, which I suspect is probably about 2 liters, she will be at risk for post expansion pulmonary edema as the lung is completely collapsed and compressed. I am hoping that this is a fairly acute process and that she will not have a pleural peel. I would not expect such with the effusion being secondary to peritoneal dialysis. We will of course send all the requisite specimens for cytology, hematology, chemistries, and bacteriology. The real question is going to be long-term management of her renal failure. If this is indeed peritoneal dialysis fluid, she is going to have to off peritoneal dialysis and resume hemodialysis. She already has a hemodialysis catheter in place.
[2016-12-19] MEDS: PERCOCET 5MG/325MG TAB PO PRN ×2 (21:48)
[2016-12-19 22:37] LABS: CC BF DIFF EXAM CYTOCENTRIFUGE
[2016-12-20] VITALS (7 sets, daily range): BP systolic 125–163; BP diastolic 55–74
[2016-12-20] MEDS: LEVALBUTEROL 1.25 MG/0.5 ML CONCENTRATE NEB NEB SCH ×4 (01:11→20:50)
[2016-12-20] MEDS: KETOROLAC 30 MG/ML VIAL (J1885) IV SCH ×4 (01:42→21:00)
[2016-12-20] MEDS: PERCOCET 5MG/325MG TAB PO PRN ×3 (01:43→12:33)
--- NOTE | 2016-12-20 01:49 | REP ---
Clinical: Chest tube. Comparison: 07/01/2016. Findings: Right-sided chest tube overlies the mid hemithorax. [id number] with tip in the SVC. Pacemaker in stable position. Mediastinum and cardiac silhouette are normal. Previously noted large right pleural effusion has improved. Small right apical pneumothorax and minimal residual right pleural fluid cannot be excluded. Impression: Right-sided chest tube with considerable improvement to the right pleural effusion. Possible small residual right pleural fluid and small right pneumothorax. Signed by Tato Anthony MD 12/20/2016 01:40 A
[2016-12-20 05:21] LABS: MEAN CORPUSCULAR HEMOGLOBIN 29.5 pg (27.0-33.0); MEAN CORPUSCULAR HGB CONC 31.5 g/dl (32.0-36.5); MEAN CORPUSCULAR VOLUME 93.8 fl (80.0-96.0); RED CELL DISTRIBUTION WIDTH 15.9 % (11.5-14.5)
[2016-12-20 05:44] LABS: ALBUMIN 2.3 GM/DL (3.2-5.2); CALCIUM LEVEL 7.8 MG/DL (8.8-10.2); CREATININE FOR GFR 5.5 MG/DL (0.55-1.02); PHOSPHORUS LEVEL 5.1 MG/DL (2.5-4.9); POTASSIUM SERUM 3.3 MEQ/L (3.5-5.1)
[2016-12-20 06:17] LABS: ABG HCO3 29.1 MEQ/L (22.0-26.0); ABG PARTIAL PRESSURE CO2 41.2 mmHg (35.0-45.0); ABG PARTIAL PRESSURE O2 114.1 mmHg (75.0-100.0); ABG TOTAL CO2 30.4 MEQ/L (23.0-31.0); ABG pH (ARTERIAL) 7.467 UNITS (7.350-7.450)
[2016-12-20] MEDS ORDERED: MIDAZOLAM INJ 2 MG/2 ML VIAL (J2250) IV ONE (07:00)
[2016-12-20] MEDS ORDERED: LIDOCAINE 1% MDV 20ML VIAL SC ONE (07:00)
--- NOTE | 2016-12-20 07:59 | REP ---
REASON: Right sided hemothorax. COMPARISON: 07/01/2016 and other older priors as well. The lack of intravenous contrast decreases the sensitivity of the exam. Right hilar adenopathy cannot be ruled out. There is no evidence of gross left hilar or mediastinal adenopathy. There is no pericardial effusion. There is a small left and a massive right pleural effusion. There is evidence of compressive atelectatic change of the right upper and lower lobes due to the large effusion. There is renal atrophic change, right greater than left unchanged from the prior exam. There is cholelithiasis which is known. There is a small of ascites which has developed since the last exam. The osseous structures are unchanged. Evaluation of the lung mooney shows chronic left lung changes status quo. There is minimal right lung aeration due to the aforementioned changes. IMPRESSION: 1. Bilateral pleural effusions as described above. 2. Compressive atelectatic changes as described above. 3. Exam limitations and other findings as described above. Signed by Gee Corbett DO 12/20/2016 12:10 P
--- NOTE | 2016-12-20 08:57 | ECGEPIP ---
Stationary ECG Study [facility] - ED Test Date: 2016-12-19 Pat Name: POONAM TURNER Department: Room: - Gender: F Director Of Pediatric Rehabilitation: TRANG : 1940 Requested By: MIKIE Artis Order Number: [id number] Reading MD: Osei Lopez Measurements Intervals [place] Rate: 68 P: 79 KS: 144 QRS: 49 QRSD: 108 T: 14 QT: 438 QTc: 467 Interpretive Statements SINUS RHYTHM MINIMAL ST DEPRESSION RHYTHM CHANGE COMPARED TO 07/01/16 Electronically Signed On 12-20-2016 8:57:22 EDT by Osei Lopez
[2016-12-20] MEDS: PANTOPRAZOLE 40MG TAB (PROTONIX) PO SCH (09:00)
[2016-12-20] MEDS: MOM 30ML SUSPENSION UDC PO SCH (09:00)
--- NOTE | 2016-12-20 09:09 | REP ---
PA and lateral chest: Comparison is 12/19/2016. The right thoracotomy tube has retracted with the tip now projecting over the right costophrenic angle. There is no pneumothorax. On the lateral view I suspect there is a small volume of persisting pleural fluid in the posterior sulcus. The right lung is otherwise clear. Left lung is clear and unchanged. Cardiac size is normal and unchanged. Dual-chamber pacemaker is unchanged. The right IJ central venous catheter is unchanged with the tip at the confluence of the superior vena cava and right atrium. Impression: The thoracotomy tube has retracted. Minimal persisting right pleural effusion. Signed by Natan Wilson MD 12/20/2016 08:59 A MTDD
[2016-12-20] MEDS: FOLIC ACID 1 MG TAB PO SCH (10:14)
[2016-12-20] MEDS: HumaLOG INSULIN (NovoLOG) PER UNIT SC SCH ×4 (10:14→21:00)
[2016-12-20] MEDS: METOPROLOL TART 25 MG TABLET PO SCH ×2 (10:15→20:59)
[2016-12-20] MEDS: HEPARIN SOD (PORCINE) 5000 UNITS/ML VIAL SC SCH ×2 (10:17→21:00)
--- NOTE | 2016-12-20 10:50 | RO ---
DATE OF PROCEDURE: 12/19/2016 PREPROCEDURE DIAGNOSIS: Right pleural effusion. POSTPROCEDURE DIAGNOSIS: Right pleural effusion. PROCEDURE: Insertion of right posterior lateral chest tube. SURGEON: Dr. Mj Newman FORE[employer] LANGUAGES PROFESSOR: ANESTHESIA: FINDINGS: 2.5 liters of thin serous fluid was eluted from the chest. It was almost clear, very suggestive of peritoneal dialysis fluid. It was sent for all the requisite studies, including chemistries, cytologies, bacteriologies, and cell counts. PROCEDURE NOTE: Under satisfactory moderate sedation achieved with 2 mg of Versed, the patient was prepped and draped in the usual sterile fashion. The skin, subcutaneous tissue and pleura over the approximately 6th rib were infiltrated with 1% Xylocaine. A tunnel was created in the chest without difficulty. A #20 chest tube was placed. It was secured to the chest wall with #2 Tevdek suture and the above drainage was noted. The chest tubes were secured and a chest x-ray is pending. The patient tolerated the procedure well.
--- NOTE | 2016-12-20 10:56 | CR ---
DATE OF CONSULTATION: 12/19/2016 REQUESTING PHYSICIAN: Nilda Morales MD REASON FOR CONSULTATION: End-stage renal disease on peritoneal dialysis, now admitted with large right pleural effusion. HISTORY OF PRESENT ILLNESS: Ms. Bharati Schneider is a 76-year-old female, long known to our service, with past medical history of end-stage renal disease. She was on hemodialysis for about 3 years via a right internal jugular (IJ) PermCath , but she has recently switched over to peritoneal dialysis about 2 months ago. Over the past several days, the patient had variant progressive shortness of breath which progressed to dyspnea on exertion which then progressed to shortness of breath even at rest. She denies any peripheral edema on peritoneal dialysis. Reports that she has been ultrafiltrating well on 2.5%. A couple of days ago, she did notice that she was several pounds above her dry weight, and she used a 4.25% exchange with good effect. Despite being at her dry weight, her shortness of breath persisted and increased. Her is a retired physician. He also treated her chest and noted diminished breath sounds on the right, and the patient presented to the emergency room for further evaluation. She had a chest x-ray that demonstrated a large right pleural effusion, which was confirmed with a CT scan, which showed severe compression of the right lung. The patient is seen in the emergency room with her at bedside. She is able to speak in short sentences, and she has labored breathing. She otherwise denies any complaints. Dr. Newman has been called for a thoracentesis this evening. PAST MEDICAL HISTORY: 1. Coronary artery disease, status post two recorded myocardial infarctions within the past year and status post three stents in March of 2015. 2. Atrial fibrillation, status post pacemaker. 3. Dyslipidemia. 4. History of deep venous thrombosis (DVT) and pulmonary embolism (PE) in May 2012, on Coumadin. 5. Hypertension. 6. Type 2 diabetes. 7. End-stage renal disease, on peritoneal dialysis. PAST SURGICAL HISTORY: 1. Right IJ PermCath. 2. Pacemaker. 3. Left ureteral stent. ALLERGIES: ERYTHROMYCIN, CLAVULANIC ACID, PENICILLIN, QUINOLONES, SULFA, TAZOBACTAM. MEDICATIONS: At home: - Sensipar 30 mg every other day - Plavix 75 mg daily - folic acid 1 mg three days a week - glipizide 5 mg by mouth daily - metoprolol 25 mg by mouth twice a day - Kamila-Randal one tablet daily - Zocor 20 mg at bedtime - Coumadin SOCIAL HISTORY: The patient spends half the year in [place] and half the year in [facility]. [place] She is . Her is a retired physician. She does not smoke. Does not drink. No illicit drugs. FAMILY HISTORY: Denies a family history of renal failure. Her father of lung cancer. REVIEW OF SYSTEMS: CONSTITUTIONAL: The patient reports a generalized deterioration in her health status. She reports eight hospital admissions within the past 1 year. She particularly reports two heart attacks within the past year and states that a credit portfolio advisor in the recent past had discussed hospice care with her. EYES: No changes in vision. No icterus. EARS, NOSE, AND THROAT (ENT): No dysphagia. No sore throat. No rhinorrhea. PULMONARY: As per history of present illness. CARDIAC: Myocardial infarction, status post stent placement. No complaint of peripheral edema, chest pain, or palpitations. GASTROINTESTINAL (GI): No complaint of nausea, vomiting, diarrhea. GENITOURINARY: End-stage renal disease, on peritoneal dialysis. NEUROLOGIC: No headaches. No seizure. ENDOCRINE: Diabetic. PSYCHIATRIC: Depression. PHYSICAL EXAMINATION: VITAL SIGNS: Temperature 98.4, pulse 72, respiratory rate 20-24 breaths per minute, blood pressure 161/76, saturating 97% on 2 liters nasal cannula. In general, the patient is seen awake, alert, oriented times three in the emergency room with her at bedside. She is in mild respiratory distress. HEAD AND NECK: Extraocular muscles intact. Moist mucous membranes. There is no jugular venous distention. LUNGS: Almost absent breath sounds on the right side with dullness to percussion. Left chest with scattered wheeze. CARDIAC: S1, S2. There is no peripheral edema. There is a systolic murmur. Radial pulse is 2+. ABDOMEN: Is soft, nontender. There is dialysate fluid in place. NEUROLOGIC: No focal deficits. EXTREMITIES no edema. PSYCHIATRIC: Appropriate mood and affect. LABORATORIES: White count 5.7, hemoglobin 11.3, platelets 143. Sodium 143, potassium 3.2, bicarbonate 33, glucose 143 on chemistry, BNP 16,000. IMAGING: Chest x-ray 12/19/2016, near complete opacification of the right hemithorax with a large pleural effusion. INPATIENT MEDICATIONS: - Sensipar 30 mg every other day - folic acid 1 mg by mouth Tuesday, Tuesday, Tuesday - heparin 5000 units subcutaneous every 12 - insulin - Toradol 15 mg intravenous (IV) every 6 times 5 days - Xopenex - metoprolol 25 mg by mouth twice a day - Protonix 40 mg by mouth daily - Zocor 20 mg by mouth nightly - Percocet as needed - Zofran as needed - nitroglycerin as needed - acetaminophen as needed - Dulcolax as needed ASSESSMENT AND PLAN: This is a 76-year-old female with end-stage renal disease on hemodialysis via right IJ PermCath who recently transitioned to peritoneal dialysis and is now admitted with a large right pleural effusion compressing the right lung. 1. Suspected pleural peritoneal leak. The patient has all the hallmarks of a pleural peritoneal leak on peritoneal dialysis with suspected peritoneal dialysis (PD) fluid in the pleural space. Dr. Newman is coming tonight for a thoracentesis, and we will followup on the pleural studies. If this is a pleural peritoneal leak, the glucose in the pleural fluid should be higher than the concomitant blood glucose, given that PD fluid is dextrose-based. 2. End-stage renal disease. If this is confirmed to be a pleural peritoneal leak as suspected, the patient would no longer be able to continue on peritoneal dialysis, given the recurrent nature of the leak, and she would have to transition back to hemodialysis. She still has a PermCath in place, and we can use that for hemodialysis access. Depending on her respiratory status, volume status, and chemistries, we will plan for a hemodialysis session on either 12/20/2016 or 12/21/2016. 3. Hypertension, currently controlled on home regimen. Thank you for involving us in the care of this patient. I will be happy to follow the patient along with you. SHERYL
--- NOTE | 2016-12-20 12:25 | IPNPDOC ---
Subjective Date Seen The patient was seen on 12/20/16. Subjective Chief Complaint/HPI The patient is a 76-year-old female admitted with a reason for visit of Esrd On Dialysis; Pleural Effusion. Events since last encounter Denies c/o. Pathology on pleural fluid pending. Constitutional: Denies: Chills, Fever, Night Sweats Pulmonary: Denies: Dyspnea, Cough Cardiovascular: Reports: Lt Headedness, Denies: Chest Pain, Palpitations, Orthopnea, Paroxysmal Noc. Dyspnea Gastrointestinal: Denies: Nausea, Vomiting, Abdominal Pain, Diarrhea, Constipation Psych: Reports: Mood Normal, Denies: Depression, Memory Issues Objective Physical Examination General Exam: Positive: Alert, No Acute Distress Neck Exam: Positive: Supple, Negative: JVD, thyromegaly Chest Exam: Positive: Clear to auscultation, Normal air movement, Diminished ( RLL) Heart Exam: Positive: Rate Normal, Regular Rhythm, Normal S1, Normal S2, Negative: Murmurs, Rubs Telemetry: Positive: No significant arrhythmia Abdomen Exam: Positive: Normal bowel sounds, Soft, Negative: Tenderness, Hepatospenomegaly Psych Exam: Positive: Mental status NL, Mood NL, Oriented x 3 Assessment /Plan Problems (1) ESRD (end stage renal disease) on dialysis Status: Chronic Problem Text: IF fluid from Effusion is in fact Peritoneal dialysate, will have to stop PD and transition to HD. Patient has permacath placed. (2) Pleural effusion Status: Acute Problem Text: Chest tube draining actively. (3) Atrial fibrillation Status: Chronic Response to Treatment: Stable Problem Specific Plan: Monitor Clinically (4) Diabetes mellitus Status: Chronic Response to Treatment: Stable Problem Specific Plan: Monitor Clinically Problem Text: Hgba1c last checked 2012. will order. Blood sugars stable on labs. (5) HTN (hypertension) Status: Chronic Response to Treatment: Stable (6) Non-rheumatic aortic sclerosis Status: Chronic Response to Treatment: Stable Problem Text: last echo 2014. Plan/VTE VTE Prophylaxis Ordered?: Yes (heparin) VS, I&O, 24H, Fishbone Vital Signs/I&O Vital Signs Date Time Temp Pulse Resp B/P (MAP) Pulse Ox O2 Delivery O2 Flow Rate FiO2 12/20/16 10:15 80 138/72 12/20/16 08:00 98.1 20 92 Nasal Cannula 2.0 12/20/16 04:00 98 I&O- Last 24 Hours up to 6 AM 12/21/16 06:00 Intake Total 120 ml Balance 120 ml Laboratory Data 24H LABS Laboratory Tests 2 12/19/16 12:59: Prothrombin Time 17.4H, Prothromb Time International Ratio 1.40, Activated Partial Thromboplast Time 29.3, C-Reactive Protein, Quantitative 0.40H 12/19/16 13:00: Immature Granulocyte % (Auto) 0.2H, White Blood Count 5.7, Red Blood Count 3.74L , Hemoglobin 11.3L, Hematocrit 35.1L, Mean Corpuscular Volume 93.9, Mean Corpuscular Hemoglobin 30.2, Mean Corpuscular Hemoglobin Concent 32.2, Red Cell Distribution Width 16.1H, Platelet Count 143L, Neutrophils (%) (Auto) 69.2H, Lymphocytes (%) (Auto) 21.3L, Monocytes (%) (Auto) 6.8H, Eosinophils (%) (Auto) 2.3, Basophils (%) (Auto) 0.2, Neutrophils # (Auto) 4.0, Lymphocytes # (Auto) 1.2L, Monocytes # (Auto) 0.4, Eosinophils # (Auto) 0.1, Basophils # (Auto) 0.0, Immature Granulocyte # (Auto) 0.0, Nucleated Red Blood Cells % (auto) 0.0, Anion Gap 7L, Glomerular Filtration Rate 8.5L, Blood Urea Nitrogen 38H, Creatinine 5.21H, Sodium Level 143, Potassium Level 3.2L, Chloride Level 103, Carbon Dioxide Level 33H, Calcium Level 8.5L, Lactate Dehydrogenase 241, Total Creatine Kinase 69, Aspartate Amino Transf (AST/SGOT) 17, Alanine Aminotransferase (ALT/SGPT) 18, Alkaline Phosphatase 55, Total Bilirubin 0.7, Direct Bilirubin 0.2, Creatine Kinase MB 3.5, Creatine Kinase MB Relative Index 5.07H, Troponin I 0.04, [id number]-Type Natriuretic Peptide 48290T, Total Protein 6.9, Albumin 2.8L, Albumin/Globulin Ratio 0.68L, Thyroid Stimulating Hormone ( TSH) 1.090 12/19/16 15:38: Blood Gas Bicarbonate Standard 30.4H, Arterial Blood pH 7.453H, Arterial Blood Partial Pressure CO2 45.7H, Arterial Blood Partial Pressure O2 121.2H, Arterial Blood Total CO2 32.7H, Arterial Blood HCO3 31.3H, Arterial Blood Base Excess 6.5H, Arterial Blood Oxygen Saturation 98.2 12/19/16 17:18: Bedside Glucose (Misc Panel) 80L 12/19/16 19:43: Body Fluid pH > 7.800, Body Fluid pH Source PLEURAL, Body Fluid WBC (Auto) 72.000H, Body Fluid RBC (Auto) < 2000.000, Body Fluid Neutrophils 8, Body Fluid Lymphocytes 37, Body Fluid Mononuclear Cells % Auto 80.6H, Fluid Polymorphonuclear Cell % Auto 19.4H, Body Fluid Monocytes/Macrophages 55, Body Fluid Glucose Source PLEURAL, Body Fluid Glucose 184, Body Fluid Protein Source PLEURAL, Body Fluid Total Protein 0.3, Body Fluid Albumin Source PLEURAL, Body Fluid Albumin 0.0, Body Fluid LDH Source PLEURAL, Body Fluid Lactate Dehydrogenase 24, Body Fluid Amylase Source PLEURAL, Body Fluid Amylase 5, Body Fluid Cholesterol < 50, Body Fluid Cholesterol Source PLEURAL, Body Fluid Triglyceride Source PLEURAL, Body Fluid Triglycerides 11, Pleural Fluid Source PLEURAL, Pleural Fluid Color COLORLESS, Pleural Fluid Appearance CLEAR 12/19/16 21:50: Bedside Glucose (Misc Panel) 57L 12/19/16 22:39: Bedside Glucose (Misc Panel) 101 12/20/16 05:06: Blood Urea Nitrogen 40H, Creatinine 5.50H, Sodium Level 142, Potassium Level 3.3L, Chloride Level 104, Carbon Dioxide Level 30, Anion Gap 8, Glomerular Filtration Rate 8.0L, Calcium Level 7.8L, Phosphorus Level 5.1H, Albumin 2.3L 12/20/16 05:47: Blood Gas Bicarbonate Standard 29.0H, Arterial Blood pH 7.467H, Arterial Blood Partial Pressure CO2 41.2, Arterial Blood Partial Pressure O2 114.1H, Arterial Blood Total CO2 30.4, Arterial Blood HCO3 29.1H, Arterial Blood Base Excess 5.0H , Arterial Blood Oxygen Saturation 98.1 12/20/16 11:48: Bedside Glucose (Misc Panel) 109 CBC/BMP Laboratory Tests 12/19/16 13:00 Red Blood Count 3.74 L, Mean Corpuscular Volume 93.9, Mean Corpuscular Hemoglobin 30.2, Mean Corpuscular Hemoglobin Concent 32.2, Red Cell Distribution Width 16.1 H, Neutrophils (%) (Auto) 69.2 H, Lymphocytes (%) (Auto ) 21.3 L, Monocytes (%) (Auto) 6.8 H, Eosinophils (%) (Auto) 2.3, Basophils (%) (Auto) 0.2, Neutrophils # (Auto) 4.0, Lymphocytes # (Auto) 1.2 L, Monocytes # ( Auto) 0.4, Eosinophils # (Auto) 0.1, Basophils # (Auto) 0.0, Calcium Level 8.5 L , Lactate Dehydrogenase 241, Total Creatine Kinase 69 12/20/16 05:06 Red Blood Count 3.22 L, Mean Corpuscular Volume 93.8, Mean Corpuscular Hemoglobin 29.5, Mean Corpuscular Hemoglobin Concent 31.5 L, Red Cell Distribution Width 15.9 H, Anion Gap 8 Microbiology Microbiology 12/19/16 Blood Culture, Received Pending 12/19/16 Blood Culture, Received Pending 12/19/16 Acid Fast Stain, Received Pending 12/19/16 Mycobacterial Culture, Received Pending 12/19/16 Fungal Smear, Received Pending 12/19/16 Fungal Culture, Received Pending 12/19/16 Gram Stain - Final, Resulted 12/19/16 Anaerobic Culture, Resulted Pending 12/19/16 Body Fluid Culture, Received Pending 12/19/16 Influenza Virus Type A Antigen - Final, Complete 12/19/16 Influenza Virus Type B Antigen - Final, Complete 12/19/16 Respiratory Virus Panel (PCR) ([facility]KA) - Final, Complete Helen Kirk HEAD KNITTING MACHINE FIXER Dec 20, 2016 12:25
--- NOTE | 2016-12-20 14:30 | IPN ---
DATE: 12/20/2016 Ms. Schneider is feeling much better today and is breathing much better today. She is still on 2 liters nasal cannula and we will start to wean that. Her pain at the chest tube insertion site is being well controlled. Her vital signs shows a T-max of 98.1 with a heart rate that ranges between 80 and 69 in a sinus rhythm, respiratory rate of 20 to 22 without the use of accessory muscles, who is 92% to 96% saturated on 2 liters nasal cannula, and whose blood pressure is ranging between 137/66 to 138/72. Her intake and output the past 24 hours has been recorded as 360 in and 1000 out for a negativity of 640 mL. She has put out 1000 mL from the chest tube last night after the initial drainage of 2500 mL. In the last 6 hours, she has put out 110 mL and prior to that she put out 100 mL. Her weight today is 65 kilos compared to 66.3 kilos yesterday. On physical examination, she has some bibasilar crackles on either side, most of which clear with coughing. Percussion note is full to the diaphragm. Cardiac Exam: Shows the holosystolic murmur, harsh, at the left lower sternal border consistent with mitral regurgitation. I cannot feel her PMI. S1, S2 are normal. Abdomen: Soft. Nontender. Bowel sounds are positive. There is no hepatomegaly. No costovertebral angle (CVA) tenderness. Extremities: No pretibial edema. No calf tenderness. No differential swelling of the upper extremities. Skin: Warm, dry and perfused. Without cyanosis or mottling, including that of the nail beds and knees. Neck: Supple. There is no jugular venous distention. No subcutaneous emphysema. Trachea is midline. Mouth: Shows her mucous membranes to be pink and moist. Lips and commissures are without lesions. There is no thrush. Eyes: Show her pupils to be equal and reactive. Extraocular movements intact. Sclerae nonicteric. Neurologic: Shows II-XII intact along with gross motor and gross sensation intact. Gait is not tested. Psychiatric shows her to be awake, alert, and oriented times three with appropriate mood and affect and conversational. Her white count today is 6.0 with hemoglobin and hematocrit of 9.5 and 30.2, down from 11.3 and 35.1 yesterday. Platelet count is 102, down from 143 yesterday. Her chemistries show her to be hypokalemic with a potassium of 3.3, which is slightly better than 3.2 yesterday. BUN and creatinine are 40 and 5.5, essentially unchanged from yesterday, with a calcium of 7.8 and a phosphorus of 5.1. Albumin was 2.3. Blood gases this morning show a pH of 7.47, pCO2 of 41, pO2 of 114. These are essentially unchanged from yesterdays prior to the chest tube insertion and drainage. Her base excess is 5.0. PT/INR yesterday was 17.4/1.40. Her pleural fluid has been reported back with a pH greater than 7.8, with a glucose of 184, with a corresponding serum glucose of 143. Albumin is 0. Total protein is 0.3. LDH is 24. Her triglycerides were only 11. There were 30% lymphocytes, 8% neutrophils and there were only 72 nucleated cells. Chest x-ray shows her lung fully expanded to the chest wall with costophrenic angles sharp. I see no infiltrates. IMPRESSION: 1. Pleural effusion secondary to peritoneal dialysis. 2. End stage renal failure requiring dialysis. 3. Shortness of breath secondary to #1, resolved. 4. History of atrial fibrillation, now in sinus rhythm. 5. Hypertension. 6. History of myocardial infractions times two and coronary artery disease. 7. Hyperlipidemia. 8. Psoriasis. 9. History of deep vein thrombosis (DVT) with pulmonary emboli in 2012. 10. Non insulin dependent diabetes. 11. Depression. 12. Severe mitral regurgitation. PLAN AND DISCUSSION: She is putting a little bit too much out the chest tube to remove it. We will continue to monitor the chest tube and most likely tomorrow will be able to remove it. Obviously, peritoneal dialysis is going to have to be discontinued and returned to hemodialysis. I will leave the hypokalemia to the expertise of the matrix drier tender.
[2016-12-20] MEDS ORDERED: SLF 3 ML SYR IV PRN (20:30)
[2016-12-20] MEDS: SIMVASTATIN 20 MG TAB PO SCH (20:59)
[2016-12-20] MEDS: SLF 3 ML SYR IV SCH (21:00)
[2016-12-20] MEDS ORDERED: POTASSIUM CHLORIDE 10 MEQ SR TABLET PO ONE (22:30)
[2016-12-21] VITALS (7 sets, daily range): BP systolic 127–171; BP diastolic 54–72
[2016-12-21] MEDS: PERCOCET 5MG/325MG TAB PO PRN (00:42)
[2016-12-21] MEDS: LEVALBUTEROL 1.25 MG/0.5 ML CONCENTRATE NEB NEB SCH ×4 (01:01→20:50)
[2016-12-21] MEDS: SLF 3 ML SYR IV SCH ×3 (05:55→20:21)
[2016-12-21 06:04] LABS: MEAN CORPUSCULAR HEMOGLOBIN 29.7 pg (27.0-33.0); MEAN CORPUSCULAR HGB CONC 31.6 g/dl (32.0-36.5); MEAN CORPUSCULAR VOLUME 94.1 fl (80.0-96.0); RED CELL DISTRIBUTION WIDTH 15.9 % (11.5-14.5); WHITE BLOOD COUNT 5.1 10^3/uL (4.0-10.0)
[2016-12-21 06:23] LABS: ALBUMIN 2.2 GM/DL (3.2-5.2); CALCIUM LEVEL 7.9 MG/DL (8.8-10.2); CREATININE FOR GFR 5.8 MG/DL (0.55-1.02); GLOMERULAR FILTRATION RATE 7.5 (>39); IMMATURE PLATELET FRACTION % 1.7 % (0.0-9.6); PHOSPHORUS LEVEL 5.1 MG/DL (2.5-4.9); POTASSIUM SERUM 3.9 MEQ/L (3.5-5.1)
--- NOTE | 2016-12-21 06:32 | IPN ---
DATE: 12/20/2016 SUBJECTIVE: The patient is seen this morning at the bedside. She had an initial thoracentesis drainage of 2.[address] Newman, and put out a further 1000 mL more overnight through the chest tube. The patient states she is feeling much better, breathing much better, tolerating oral intake. Her pain at the chest tube site is well controlled. I had a discussion with her at the bedside today regarding dialysis plans going forward. She will receive a hemodialysis treatment tomorrow, 12/21, and she is going to be set up for further outpatient hemodialysis treatment. REVIEW OF SYSTEMS: Negative for headache, dizziness, palpitations, nausea, vomiting, diarrhea. Review of systems positive for tenderness at site of chest tube and positive for improvement in shortness of breath. Remainder of review of systems is negative. OBJECTIVE: VITAL SIGNS: Temperature 98.0, pulse 69, respiratory rate 20, blood pressure 137/66, saturating 96% on two liters nasal cannula. GENERAL: The patient is seen in bed eating breakfast, comfortable in no acute distress. HEAD/NECK: Extraocular muscles are intact. Neck is supple. There is no prominence of the neck veins. She has a right internal jugular (IJ) PermaCath with dressings. CARDIAC: S1, S2. Systolic murmur. 2+ radial pulse. There is no edema of the extremities. LUNGS: Chest tube with clear fluid resembling peritoneal dialysate. Air entry on the right side is significantly improved. She is comfortable on nasal cannula. There is no increased work of breathing. NEUROLOGIC: No focal deficits. Appropriately interactive and conversational. PSYCHIATRIC: Appropriate mood and affect. LABORATORY DATA: Pleural effusion studies, pH greater than 7.8, glucose 184, albumin zero, total protein 0.3, LDH 24, colorless and clear. 72 WBC of which 80% were mononuclear cells. White count 6.0, hemoglobin 9.5, platelets 102. Sodium 142, potassium 3.3, bicarbonate 30, corrected calcium nine, phosphorus 5.1. IMAGING: Chest x-ray 12/20: Minimal persistent right pleural effusion. INPATIENT MEDICATIONS: She is given a dose of potassium chloride 40 mEq oral times one. There are no other changes in the medications. ASSESSMENT AND PLAN: This is a 76-year-old female with past medical history of end-stage renal disease on hemodialysis via right internal jugular (IJ) PermaCath, who recently transitioned to peritoneal dialysis and developed a large right pleural effusion, status post thoracentesis and chest tube placement. 1. Pleural effusion secondary to pleural peritoneal leak. The patient's fingerstick glucose at the time of pleural drainage was 80, and her glucose in the pleural effusion was 184 with a corresponding glucose gradient about 100, consistent with pleural effusion secondary to pleural peritoneal leak with dialysate in the pleural space. Further analysis of the pleural fluid also revealed, as expected, very low protein and no albumin. The patient continues to have output through the chest tube. She denies having dialysate in situ in the peritoneum at present. 2. End-stage renal disease requiring dialysis. The patient will receive a hemodialysis tomorrow. She will need to be set up for outpatient hemodialysis treatments as well. She currently has a right IJ PermaCath. She needs to followup with Dr. Roman regarding placement of a graft or fistula. Given her extensive cardiac catheterization history, she may or may not be deemed an appropriate surgical candidate.
[2016-12-21] MEDS: PANTOPRAZOLE 40MG TAB (PROTONIX) PO SCH (06:36)
[2016-12-21] MEDS: MOM 30ML SUSPENSION UDC PO SCH ×2 (06:37→06:39)
[2016-12-21] MEDS: HumaLOG INSULIN (NovoLOG) PER UNIT SC SCH ×4 (07:30→20:20)
[2016-12-21] MEDS: HEPARIN SOD (PORCINE) 5000 UNITS/ML VIAL SC SCH ×2 (08:58→20:20)
[2016-12-21] MEDS: METOPROLOL TART 25 MG TABLET PO SCH ×2 (08:59→20:19)
[2016-12-21] MEDS ORDERED: CINACALCET 30 MG TAB (SENSIPAR) PO SCH (09:00)
--- NOTE | 2016-12-21 12:06 | IPNPDOC ---
Subjective Date Seen The patient was seen on 12/21/16. Subjective Chief Complaint/HPI The patient is a 76-year-old female admitted with a reason for visit of Esrd On Dialysis; Pleural Effusion. Events since last encounter + dialysate in pleural fluid. Will start HD today per Dr. Jasmeet Vegas's note. Has right IJ permacath in place. Constitutional: Denies: Chills, Fever, Night Sweats Cardiovascular: Denies: Chest Pain, Palpitations, Orthopnea, Paroxysmal Noc. Dyspnea, Lt Headedness Gastrointestinal: Denies: Nausea, Vomiting, Abdominal Pain, Diarrhea, Constipation Genitourinary: Denies: Dysuria, Frequency, Incontinence, Retention Objective Physical Examination General Exam: Positive: Alert, No Acute Distress Neck Exam: Positive: Supple, Negative: JVD, thyromegaly Chest Exam: Positive: Clear to auscultation, Normal air movement, Diminished ( RLL) Heart Exam: Positive: Rate Normal, Regular Rhythm, Normal S1, Normal S2, Negative: Murmurs, Rubs Telemetry: Positive: No significant arrhythmia Abdomen Exam: Positive: Normal bowel sounds, Soft, Negative: Tenderness, Hepatospenomegaly Psych Exam: Positive: Mental status NL, Mood NL, Oriented x 3 Assessment /Plan Problems (1) ESRD (end stage renal disease) on dialysis Status: Chronic Problem Text: IF fluid from Effusion is in fact Peritoneal dialysate, will have to stop PD and transition to HD. Patient has permacath placed. (2) Pleural effusion Status: Acute Problem Text: 12/1016: CT removed today. Chest tube draining actively. (3) Atrial fibrillation Status: Chronic Response to Treatment: Stable Problem Specific Plan: Monitor Clinically (4) Diabetes mellitus Status: Chronic Response to Treatment: Stable Problem Specific Plan: Monitor Clinically Problem Text: Hgba1c last checked 2012. will order. Blood sugars stable on labs. (5) HTN (hypertension) Status: Chronic Response to Treatment: Stable (6) Non-rheumatic aortic sclerosis Status: Chronic Response to Treatment: Stable Problem Text: last echo 2014. Plan/VTE VTE Prophylaxis Ordered?: Yes (heparin) VS, I&O, 24H, Fishbone Vital Signs/I&O Vital Signs Date Time Temp Pulse Resp B/P (MAP) Pulse Ox O2 Delivery O2 Flow Rate FiO2 12/21/16 08:59 66 145/68 12/21/16 08:00 98.1 18 96 Room Air 12/21/16 04:00 1.0 12/20/16 04:00 98 I&O- Last 24 Hours up to 6 AM 12/22/16 06:00 Intake Total 360 ml Balance 360 ml Laboratory Data 24H LABS Laboratory Tests 2 12/20/16 16:43: Bedside Glucose (Misc Panel) 129H 12/21/16 05:26: Immature Platelet Fraction 1.7, Blood Urea Nitrogen 45H, Creatinine 5.80H, Sodium Level 140, Potassium Level 3.9, Chloride Level 103, Carbon Dioxide Level 28, Anion Gap 9, Glomerular Filtration Rate 7.5L, Calcium Level 7.9L, Phosphorus Level 5.1H, Albumin 2.2L CBC/BMP Laboratory Tests 12/21/16 05:26 Red Blood Count 3.20 L, Mean Corpuscular Volume 94.1, Mean Corpuscular Hemoglobin 29.7, Mean Corpuscular Hemoglobin Concent 31.6 L, Red Cell Distribution Width 15.9 H, Anion Gap 9 Microbiology Microbiology 12/21/16 Blood Culture, Received Pending 12/19/16 Blood Culture - Preliminary, Resulted No growth after 24 hours . All specim... 12/19/16 Blood Culture - Preliminary, Resulted 12/19/16 Acid Fast Stain, Received Pending 12/19/16 Mycobacterial Culture, Received Pending 12/19/16 Fungal Smear, Received Pending 12/19/16 Fungal Culture, Received Pending 12/19/16 Gram Stain - Final, Complete 12/19/16 Anaerobic Culture - Final, Complete 12/19/16 Body Fluid Culture - Final, Complete 12/19/16 Influenza Virus Type A Antigen - Final, Complete 12/19/16 Influenza Virus Type B Antigen - Final, Complete 12/19/16 Respiratory Virus Panel (PCR) ([facility]) - Final, Complete Helen Kirk NET ARCHITECT Dec 21, 2016 12:06
--- NOTE | 2016-12-21 15:18 | REP ---
CHEST X-RAY: TWO VIEWS. HISTORY: Pleural effusion. COMPARISON: Chest x-ray, December 20, 2016. FINDINGS: A right internal jugular vein [id number] catheter is seen in the expected location of the superior vena cava. A bipolar pacemaker is noted in the right heart via the left side. EKG electrodes are again seen. Right hemidiaphragm remains somewhat elevated. The right chest tube has been removed in the interval since the prior radiograph. There is no evidence of pneumothorax or hydrothorax. No new infiltrate is seen. Mildly prominent heart is seen with coronary artery stent material visible. IMPRESSION: No new infiltrate. No evidence of pneumothorax status post right chest tube removal. Signed by Rajiv Jasso MD 12/21/2016 05:28 P
--- NOTE | 2016-12-21 17:20 | IPN ---
DATE: 12/21/2016 Ms. Schneider has had a stable 24 hours and is breathing well. The pain is being well controlled at the chest tube insertion site. She has put out minimal output. It was noted yesterday that her effusion is consistent with peritoneal dialysis fluid. Her vital signs shows a maximum temperature (t-max) of 98.5 with a heart rate that ranges between 68 and 64 in a sinus rhythm, respiratory rate that is constant at 18 without the use of accessory muscles, who is 95 to 96% saturated on room air and whose blood pressure is ranging between 146/68 to 136/70. Her intake and output the past 24 hours has been recorded as 660 in and 270 out for a positivity of 390 mL. She has had three incontinent voids. Weight today is 63.9 kg compared to 65 kg yesterday. On physical examination, her lungs show equal breath sounds on either side. There is some faint whistling sound, bronchovesicular sounds during inspiration. There are no expiratory wheezes. Percussion note is full to the diaphragm. Cardiac Exam: Without murmurs, clicks, gallops or rubs. I cannot feel her PMI. S1, S2 are normal. Abdomen: Soft. Nontender. Bowel sounds are positive. There is no hepatomegaly. No costovertebral angle (CVA) tenderness. Extremities: No pretibial edema. No calf tenderness. No differential swelling of the upper extremities. Skin: Warm, dry and perfused. Without cyanosis or mottling, including that of the nail beds and knees. Neck: Supple. There is no jugular venous distention. No subcutaneous emphysema. Trachea is midline. Mouth: Shows her mucous membranes to be pink and moist. Lips and commissures are without lesions. There is no thrush. Eyes: Show her pupils to be equal and reactive. Extraocular movements intact. Sclerae nonicteric. Neurologic: Shows II-XII intact along with gross motor and gross sensation intact. Gait is not tested. Psychiatric shows her to be awake, alert, and oriented times three with appropriate mood and affect and conversational. She has put out 270 mL from the chest tube yesterday and 140 mL in the last 12 hours. Her white count is 5.1 with a hemoglobin and hematocrit of 9.5 and 30.1, essentially unchanged from yesterday with a platelet count of 92. There is no differential on her. Chemistries showed normal electrolytes with a BUN and creatinine of 5.8 and 7.5, respectively. Calcium is 7.9 with a phosphorous of 5.1 and an albumin of 2.2. Her chest x-ray today showed the lung fully expanded to the chest wall. Costophrenic angles are sharp. I see no infiltrates. There is no subcutaneous emphysema. Lateral film shows some discoid atelectasis in the right lower lobe posteriorly. IMPRESSION: 1. Right sided pleural effusion secondary to peritoneal dialysate. 2. End stage renal failure requiring dialysis. 3. Shortness of breath secondary to #1, resolved. 4. History of atrial fibrillation, now in sinus rhythm. 5. Hypertension. 6. History of myocardial infractions times two and coronary artery disease. 7. Hyperlipidemia. 8. Psoriasis. 9. History of deep vein thrombosis (DVT) with pulmonary emboli in 2012. 10. Non insulin dependent diabetes. 11. Depression. 12. Severe mitral regurgitation. PLAN AND DISCUSSION: I will discontinue her chest tubes today. We will check a chest x-ray tomorrow. If there is no reaccumulation I would be amenable to having her discharged tomorrow. The dilemma still remains as to how best dialyze her. She is going to be hemodialyzed today. Obviously, she cannot continue peritoneal dialysis as it results in a pleural effusion.
[2016-12-21] MEDS: SIMVASTATIN 20 MG TAB PO SCH (20:19)
[2016-12-21] MEDS: NORCO, ANEXSIA 5/325MG TABLET (HYDROcodone/ACETAMINOPHEN) PO PRN (20:32)
[2016-12-22] VITALS: BP 126/58
[2016-12-22] MEDS: LEVALBUTEROL 1.25 MG/0.5 ML CONCENTRATE NEB NEB SCH ×3 (01:16→14:00)
[2016-12-22 04:00] VITALS: BP 120/49
[2016-12-22] MEDS: SLF 3 ML SYR IV SCH ×2 (05:48→15:04)
[2016-12-22] MEDS: NORCO, ANEXSIA 5/325MG TABLET (HYDROcodone/ACETAMINOPHEN) PO PRN ×2 (06:34→12:34)
--- NOTE | 2016-12-22 06:52 | IPN ---
DATE OF SERVICE: 12/21/2016 SUBJECTIVE: The patient is seen this morning at the bedside. Her chest tube was discontinued by Dr. Newman today. She feels well. She reports no complaints. She is saturating well on room air and she is due for a hemodialysis treatment this afternoon. REVIEW OF SYSTEMS: Negative for headache, dizziness, nausea, vomiting, diarrhea, shortness of breath, palpitations. Review of systems positive for adequate pain control at site of chest tube. Remainder of review of systems is negative. OBJECTIVE: VITAL SIGNS: Temperature 98.1, pulse 66, respiratory rate 18, blood pressure 145/68, saturating 96% on room air. Intake and output hemodialysis today 1000 mL ultrafiltration. The chest tube put out 270 mL in the previous 24 hours and 180 mL overnight prior to discontinuation. Weight in the bed scale today 63.9 kg. GENERAL: The patient is seen in bed, comfortable in no acute distress, on room air. HEAD/NECK: Extraocular muscles are intact. Mucous membranes are moist. She has a right internal jugular (IJ) PermaCath. CARDIAC: S1, S2. 2+ radial pulse. No edema of the extremities. LUNGS: Equivalent bilateral air entry, chest tube has been discontinued. ABDOMEN: Soft, nontender. PD catheter exit site not examined. NEUROLOGIC: No focal deficits. Appropriately interactive and conversational. EXTREMITIES: no edema PSYCHIATRIC: Appropriate mood and affect. LABORATORY DATA: White count 5.1, hemoglobin 9.5, platelet 92, sodium 140, potassium 3.9, bicarbonate 28, phosphorus 5.1, corrected calcium 9.5. IMAGING: Chest x-ray 12/21: No new infiltrates, no pneumothorax, status post right chest tube removal. INPATIENT MEDICATIONS: Reviewed by myself. There are no significant changes in past 24 hours. ASSESSMENT AND PLAN: This is a 76-year-old female with past medical history of end-stage renal disease on hemodialysis via right internal jugular (IJ) PermaCath, who recently transitioned to peritoneal dialysis and developed a large right pleural effusion , secondary to pleural peritoneal leak status post thoracentesis and chest tube placement. 1. Pleural effusion secondary to pleural peritoneal leak. The patient's chest tube was discontinued today. Given how large and dramatic her effusion was, I do not think she is a good candidate for peritoneal dialysis going forward and certainly not at the present time. 2. End-stage renal disease requiring dialysis. The patient desires home based therapy. I have discussed other treatment options with her including home hemodialysis. Today she will receive a hemodialysis treatment in the hospital. She is being set up for in center hemodialysis treatment to continue as an outpatient. We will continue to explore other treatment options with her including home hemodialysis which may be a good fit for Ms. Calabrese especially as she has good family support at home and her is a retired physician. She continues to dialysis via her right internal jugular (IJ) PermaCath. She needs to followup with Dr. Roman regarding placement of a graft or fistula if she is deemed an appropriate surgical candidate for the same. SHERYL
[2016-12-22 07:13] LABS: MEAN CORPUSCULAR HEMOGLOBIN 30.1 pg (27.0-33.0); MEAN CORPUSCULAR HGB CONC 31.6 g/dl (32.0-36.5); MEAN CORPUSCULAR VOLUME 95.1 fl (80.0-96.0); RED CELL DISTRIBUTION WIDTH 16.1 % (11.5-14.5)
[2016-12-22 07:29] LABS: ALBUMIN 2.3 GM/DL (3.2-5.2); CALCIUM LEVEL 8.4 MG/DL (8.8-10.2); CREATININE FOR GFR 3.92 MG/DL (0.55-1.02); GLOMERULAR FILTRATION RATE 11.9 (>39); PHOSPHORUS LEVEL 3.7 MG/DL (2.5-4.9)
[2016-12-22] MEDS: HumaLOG INSULIN (NovoLOG) PER UNIT SC SCH ×3 (07:46→17:30)
[2016-12-22 08:00] VITALS: BP 127/59
[2016-12-22] MEDS: PANTOPRAZOLE 40MG TAB (PROTONIX) PO SCH (08:47)
[2016-12-22] MEDS: HEPARIN SOD (PORCINE) 5000 UNITS/ML VIAL SC SCH (08:47)
[2016-12-22 08:48] VITALS: BP 127/59
[2016-12-22] MEDS: METOPROLOL TART 25 MG TABLET PO SCH (08:48)
[2016-12-22] MEDS: MOM 30ML SUSPENSION UDC PO SCH (08:48)
[2016-12-22] MEDS: FOLIC ACID 1 MG TAB PO SCH (08:48)
--- NOTE | 2016-12-22 09:10 | REP ---
PA and lateral chest: Comparisons are 12/21/2016 and a remote study of 10/19/2014. There is no pneumothorax. There is chronic elevation of the right hemidiaphragm. There is chronic parenchymal scarring in the left suprahilar zone, unchanged from 2015. The lung mooney are clear. Cardiac size is normal. There is a right IJ central venous catheter, unchanged. There is a dual-chamber pacemaker, unchanged. Impression: There are no acute cardiopulmonary findings. Signed by Natan Wilson MD 12/22/2016 09:02 A
[2016-12-22 11:35] LABS: INR 1.29
[2016-12-22 12:00] VITALS: BP 125/60
--- NOTE | 2016-12-22 14:50 | IPN ---
DATE: 12/22/2016 Mrs. Schneider had her chest tube removed yesterday and she is doing quite well. She is not complaining of shortness of breath. She is asking to go home. Her vital signs show a T-max of 99.8. Her heart rate ranges between 78 and 75 and is sinus rhythm, respiratory rate that is constant at 18, who is 93 to 90% saturated on room air and whose blood pressure is ranging between 127/50 to 171/72. Her intake and output the past 24 hours has been recorded as 1140 in and 1180 out for a negativity of 40 mL. She was dialyzed yesterday. She weighs 63.2 kg today compared to 63.9 kg yesterday. On physical examination, her lungs show equal breath sounds on either side. I hear neither wheezes, rhonchi or rales that I have heard before. Percussion note is full to the diaphragm. Cardiac Exam: Shows a 3/6 holosystolic murmur at the left lower sternal boarder. I cannot feel her PMI. S1, S2 are normal. Abdomen: Soft. Nontender. Bowel sounds are positive. There is no hepatomegaly. No costovertebral angle (CVA) tenderness. Extremities: Show trace pretibial edema. No calf tenderness. No differential swelling of the upper extremities. Skin: Warm, dry and perfused without cyanosis or mottling, including that of the nail beds and knees. Neck: Supple. There is no jugular venous distention. No subcutaneous emphysema. Trachea is midline. Mouth: Shows her mucous membranes to be pink and moist. Lips and commissures are without lesions. There is no thrush. Eyes: Show her pupils to be equal and reactive. Extraocular movements intact. Sclerae nonicteric. Neurologic: Shows II-XII intact along with gross motor and gross sensation intact. Gait is not tested. Psychiatric: Shows her to be awake, alert, and oriented times three with appropriate mood and affect and conversational. Her white count is 6.0 with a hemoglobin and hematocrit of 9.9 and 31.3, respectively. Platelet count is 105 and stable. Chemistries showed normal electrolytes with a BUN and creatinine of 22 and 3.9 after dialysis yesterday. Glucose is 82 with a calcium of 8.4 and a phosphorous of 3.7. Albumin is 2.3. Chest x-ray shows her lung fully expanded to the chest wall. Costophrenic angles are sharp on the PA view. There is a little bit of blunting on the lateral view. I see no infiltrates. There is no subcutaneous emphysema. IMPRESSION: 1. Right pleural effusion secondary to peritoneal dialysis fluid. 2. Shortness of breath secondary to #1. 3. End stage renal disease requiring dialysis. 4. History of atrial fibrillation, now in sinus rhythm. 5. Hypertension. 6. History of myocardial infractions times two with coronary artery disease. 7. Hyperlipidemia. 8. Psoriasis. 9. History of deep vein thrombosis (DVT) with pulmonary emboli in 2012. 10. Non insulin dependent diabetes. 11. Depression. 12. Severe mitral regurgitation. PLAN AND DISCUSSION: From a thoracic surgical point of view, I can see no reason why she cannot go home. What remains to be seen and is up to nephrology, is how she is going to be dialyzed. Obviously, she cannot be dialyzed via the peritoneal route[place] go to [place] in two weeks. The worst case scenario is that [place] to undergo dialysis. Because of her living situation, I will not have her come back to see me in post hospitalization followup as my treatment was hopefully a one time occurrence secondary to the peritoneal fluid.
--- NOTE | 2016-12-22 15:36 | DSES ---
DATE OF ADMISSION: 12/19/2016 DATE OF DISCHARGE: 12/22/2016 PRIMARY CARE PROVIDER: Luisito Soto MD CYLINDER TESTER: Vernon Vegas DO GENERAL SURGEON: Mj uDbose MD VASCULAR SURGEON: Carol Roman MD THORACIC SURGEON: Mj Newman MD HISTORY OF PRESENT ILLNESS: 76-year-old female who presented to the emergency department for a 3 day history of worsening shortness of breath, tachypnea, and oxygen saturation in the low 80s. Patient's , who is a retired physician , listened to her lungs and was unable to appreciate any breath sounds on her right side, additionally reports that patient was having some significant diaphoresis with activity. Denied chills, sweats. Did have a reported weight loss of approximately 40 pounds over the last couple of years and complaining of tightness and pressure across her chest which she gets with activity. Patient was subsequently admitted to the family medicine service and placed in the progressive care unit (PCU). HOSPITAL COURSE: Consultation was placed with Dr. Mj Newman for further evaluation of the pleural effusion. Please see his consult note for his full evaluation. Patient is status post chest tube placement by Dr. Newman on 12/20/2016, with 2.5 liters of thin serous fluid removed from the chest. The fluid was very suggestive of peritoneal dialysis fluid and was subsequently sent for studies and returned positive for dialysis fluid. Dr. Vernon Vegas was consulted and advised patient she can no longer continue with peritoneal dialysis. Patient is status post hemodialysis on 12/21/2016, and tolerated that well. Repeat chest x-ray today reports no acute cardiopulmonary findings other than a dual chamber pacemaker which is unchanged and a right internal jugular (IJ) central venous catheter which is unchanged. The most recent lab values show a hemoglobin and hematocrit of 9.9 and 31.3 with a white blood cell count of 6000. Complete metabolic panel (CMP) shows an improved creatinine of 3.92, electrolytes are stable, the patient's albumin is low at 2.3. VITAL SIGNS: Stable. The patient has remained afebrile throughout her hospitalization. HEENT: Neck is supple without lymphadenopathy or jugular venous distention (JVD). CARDIOVASCULAR: Heart rate and rhythm are regular. PULMONARY: Lungs are clear. ABDOMEN: Soft and nontender. Peritoneal dialysis catheter is clean, dry, and intact around the insertion site. BILATERAL LOWER EXTREMITIES: Without any significant edema. SKIN: Patient has some scabbed picking-like lesions throughout her abdomen and side. NEUROLOGIC: She is alert and oriented times three. PSYCHIATRIC: Affect is appropriate. Conversation is congruent. Patient maintains eye contact. ASSESSMENT: DISCHARGE DIAGNOSES: 1. End-stage renal disease. 2. Right-sided pleural effusion secondary to leakage of peritoneal dialysis fluid. SECONDARY DIAGNOSES: Include: 1. Atrial fibrillation. 2. Hypertension. 3. Non-insulin dependent diabetes. 4. Dyslipidemia. 5. Dual chamber pacemaker. The patient will be discharged home once her outpatient hemodialysis will be set up. She will followup with Dr. Mj Dubose for removal of her peritoneal dialysis catheter. She will followup with Dr. Urban Roman for permanent vascular access as she currently has a right internal jugular (IJ) Permacath which is approximately 2 years old. She will followup with Dr. Vernon Vegas regarding her hemodialysis and end-stage renal disease. Patient will resume her anticoagulation for her atrial fibrillation this evening. She will need a PT/ INR in the morning and this can be completed prior to her dialysis. Diet is a renal diet. Activity is as tolerated. Patient does have a dual chamber pacemaker. No documented cardiology evaluation in this area since 2013. I would recommend making sure the patient does followup with cardiology in the interim to ensure proper functioning of patient's pacemaker. MEDICATIONS: Are as follows: - Sensipar 30 mg by mouth every 2 days - Plavix 75 mg daily - folic acid 1 mg by mouth three times per week - glipizide 5 mg by mouth daily - metoprolol tartrate 25 mg by mouth twice a day - nitroglycerin 0.4 mg sublingual every 5 minutes as needed for chest pain - Kamila-Randal one tablet by mouth daily - simvastatin 20 mg by mouth nightly - warfarin sodium 1 mg tablet two by mouth two times per week and 1.5 mg by mouth five times per week Patient's did call stating that he found some blood on the bathroom floor and was concerned that perhaps there was some vaginal bleeding. Patient was questioned regarding this. Patient adamantly denied any rectal or vaginal bleeding or difficulty with bleeding at all. This may be approached by her primary care provider (PCP) on followup, however patient denied having any issues while she was here as an inpatient. SHERYL
--- NOTE | 2016-12-23 07:00 | IPN ---
DATE: 12/22/2016 SUBJECTIVE: The patient is seen this morning at the bedside. She is doing well. No acute complaints. No more shortness of breath. She is discharge pending today. She is set up for hemodialysis at [facility] tomorrow. She is aware of the date and time of her treatment. REVIEW OF SYSTEMS: Negative for headache, dizziness, status post, palpitations, shortness of breath, nausea, vomiting, diarrhea, abdominal pain, lower extremity edema. Remainder of review of systems is negative. OBJECTIVE: VITAL SIGNS: Temperature 98.7, pulse 78, respiratory rate 18, blood pressure 127/59, saturating 90% on room air. INTAKE AND OUTPUT: Hemodialysis yesterday removed 1000 mL ultrafiltration with no acute issues. Weight in the bed scale today 63.2 kg. PHYSICAL EXAMINATION: GENERAL: The patient is seen out of bed to chair, awake, alert, oriented times three in no acute distress. HEAD/NECK: Her oral mucosa is moist. Her neck is supple. She has a right internal jugular (IJ) PermaCath. CARDIOVASCULAR: S1, S2. Two plus radial pulse, no edema in the extremities. LUNGS: Are notable for a faint whistling sound in the left lower lobe; otherwise clear, and the patient is seen on room air comfortable. ABDOMEN: Soft, nontender. Peripheral dialysis (PD) catheter exit site not examined. EXTREMITIES: No edema in the lower extremities or in the upper extremities or at the dependent areas. PSYCHIATRIC: Appropriate mood and affect. NEUROLOGIC: Focal deficits are not appreciated. LABORATORY DATA: White count 6.0, hemoglobin 9.9, platelets 105. Sodium 140, potassium 4.0, BUN 22, bicarbonate 29, calcium corrected for albumin 9.6, phosphorus 3.7. MICROBIOLOGY: Blood cultures 12/21 no growth for 24 hours. IMAGING: Chest x-ray 12/22: There are no acute cardiopulmonary findings. INPATIENT MEDICATIONS: Reviewed by myself. No changes in the past 24 hours. ASSESSMENT AND PLAN: 1. Pleural effusion secondary to pleuroperitoneal leak. The patient's chest tube has been discontinued. She was seen by Dr. Newman this morning and is deemed stable for discharge. Given her large pleuroperitoneal leak, she is not a candidate for peritoneal dialysis going forward due to the risk of recurrent effusion accumulation. 2. End-stage renal disease requiring hemodialysis. The patient was dialyzed yesterday with her right IJ PermaCath with no issues. She is set up for outpatient hemodialysis on Tuesday, , Tuesday schedule. She is aware of the date and time of her first outpatient treatment. She is instructed to followup with Dr. Roman in regard to her right IJ PermaCath for possible fistula or graft placement if she is a surgical candidate. She also needs to followup with surgery as an outpatient in regard to her PD catheter site, so that it can be removed. She does plan to go to [place] within the next couple of weeks along with her and that does complicate her care as she will be staying in [place] for six months.
[2016-12-31] MEDS ORDERED: AMOX500C PO (09:56)
== END 2016-12-22 18:02 | disposition home or self-care (01) | DRG 186 ==
LOC: M ED 12:24 → EDBD 12:24 → M ED INP 15:51 → M PCU 17:05
PROVIDERS: ADMIT Family Medicine; ATTEND Family Medicine
PROC: 0W9930Z Drainage of Right Pleural Cavity with Drainage Device, Percutaneous Approach (ICD-10-PCS; principal; 2016-12-19)
PROC: 5A1D70Z Performance of Urinary Filtration, Intermittent, Less than 6 Hours Per Day (ICD-10-PCS; 2016-12-21)
DX: J94.8 Other specified pleural conditions (principal); N18.6 End stage renal disease; I13.11 Hypertensive heart and chronic kidney disease without heart failure, with stage 5 chronic kidney disease, or end stage renal disease; T85.691A Other mechanical complication of intraperitoneal dialysis catheter, initial encounter; J90 Pleural effusion, not elsewhere classified; I48.91 Unspecified atrial fibrillation; E11.9 Type 2 diabetes mellitus without complications; E78.5 Hyperlipidemia, unspecified; Z95.0 Presence of cardiac pacemaker; Z79.899 Other long term (current) drug therapy; Z88.0 Allergy status to penicillin; Z88.2 Allergy status to sulfonamides; Z88.1 Allergy status to other antibiotic agents; Z88.8 Allergy status to other drugs, medicaments and biological substances; F32.9 Major depressive disorder, single episode, unspecified; Z86.711 Personal history of pulmonary embolism; L40.8 Other psoriasis; I25.10 Atherosclerotic heart disease of native coronary artery without angina pectoris; I25.2 Old myocardial infarction; Z79.01 Long term (current) use of anticoagulants; I34.0 Nonrheumatic mitral (valve) insufficiency; Y84.1 Kidney dialysis as the cause of abnormal reaction of the patient, or of later complication, without mention of misadventure at the time of the procedure

== ENCOUNTER 2017-01-06 06:17 | Day surgery (SDC) | payer OTHER ==
[~2017-01-06] VITALS: Ht 162.6 cm; Wt 63.0 kg
[~2017-01-06 06:17] MED LIST changes: +AMOX500C PO; +RENATAB5 PO; +WARF05TA
[2017-01-06] MEDS ORDERED: D5W/0.2% SODIUM CHLORIDE 1,000 ML IV SCH (06:30)
[2017-01-06] MEDS ORDERED: ceFAZolin 2 GM/D5W 50 ML IV BAG (J0690) As Ordered ONE (06:54)
[2017-01-06 07:00] LABS: INR 1.03
[2017-01-06] MEDS ORDERED: fentaNYL 100 MCG/2 ML INJECTION (J3010) As Ordered ONE (07:14)
[2017-01-06] MEDS ORDERED: MIDAZOLAM INJ 2 MG/2 ML VIAL (J2250) As Ordered ONE (07:14)
[2017-01-06] MEDS ORDERED: BUPIVACAINE/EPIN 0.25% 30 ML VIAL As Ordered ONE (07:19)
[2017-01-06] MEDS ORDERED: LIDOCAINE 1% MDV 20ML VIAL As Ordered ONE (07:19)
[2017-01-06] MEDS ORDERED: LIDOCAINE 2% INJ 100 MG/5 ML SDV (FOR ANES.) As Ordered ONE (07:48)
[2017-01-06] MEDS ORDERED: PROPOFOL 200 MG/20 ML VIAL As Ordered ONE (07:48)
[2017-01-06] MEDS ORDERED: LIDOCAINE 1% SDV INJ 30 ML VIAL As Ordered ONE (08:21)
[2017-01-06 09:30] VITALS: BP 159/72
[2017-01-06] MEDS ORDERED: NS 1,000 ML IV SCH (09:45)
[2017-01-06] MEDS ORDERED: fentaNYL 100 MCG/2 ML INJECTION (J3010) IV PRN (09:45)
[2017-01-06] MEDS ORDERED: ONDANSETRON 4MG/2ML VIAL (J2405) IV PRN (09:45)
--- NOTE | 2017-01-10 19:44 | RO ---
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 PROCEDURE: Removal of continuous ambulatory peritoneal dialysis catheter. SURGEON: Dr. Mj Dubose PURCHASING ADMINISTRATIVE ASSISTANT: ANESTHESIA: Local with monitored anesthesia care INDICATIONS FOR PROCEDURE: Patient is 76-year-old woman with end-stage renal disease, on hemodialysis. A continuous ambulatory peritoneal dialysis (CAPD) catheter was placed approximately 2 months ago. The dialysis appeared to be working well, but she developed a large right pleural effusion, which was determined to be caused by pleuroperitoneal fistula or fistulas. She is now for removal of her CAPD catheter. DESCRIPTION OF PROCEDURE: The patient was placed on the operating table in a supine position. The abdomen was prepped and draped in a sterile fashion with care to prep the catheter itself. The CAPD catheter exited the patient's left lower quadrant. Local anesthesia was achieved with 1% Xylocaine and sedation was offered by anesthesia. An incision was made through her old scar at the insertion site. This was deepened into the subcutaneous tissues and the catheter was identified as it entered the rectus fascia. The catheter was clamped and cut. The catheter was then followed into the rectus muscle and down to the level of the peritoneum where the pledget was freed by sharp dissection and the catheter was removed and discarded. The edges of the peritoneum were identified , and this was closed with two simple sutures of #2-0 Vicryl. The muscle and fascia was then approximated with #2-0 Vicryl as well. Hemostasis was ensured with the electrocautery. A small transverse elliptical incision was made at the catheter exit site. Dissection was carried into the subcutaneous tissues and the superficial pledget was dissected free, and this portion of the catheter was then removed and discarded. Hemostasis was ensured with the cautery. After ensuring hemostasis, the subcutaneous tissues were closed with chromic, and the skin edges were approximated with running subcuticular #4-0 Vicryl sutures. Steri-Strips were applied. She tolerated the procedure well without apparent complication. She was transported to advanced recovery in stable condition. [facility]
== END 2017-01-06 09:51 | disposition home or self-care (01) ==
LOC: M SDC 06:17 → EEVIPCON 07:30 → M SDC 09:51
PROVIDERS: ATTEND Surgery
DX: T82.9XXA Unspecified complication of cardiac and vascular prosthetic device, implant and graft, initial encounter (principal); N18.6 End stage renal disease; Z79.899 Other long term (current) drug therapy; I48.91 Unspecified atrial fibrillation; I50.9 Heart failure, unspecified; I11.9 Hypertensive heart disease without heart failure; I25.2 Old myocardial infarction; I25.10 Atherosclerotic heart disease of native coronary artery without angina pectoris; Z98.61 Coronary angioplasty status; Z88.2 Allergy status to sulfonamides; E11.9 Type 2 diabetes mellitus without complications; Z88.0 Allergy status to penicillin; Z79.01 Long term (current) use of anticoagulants; Z79.02 Long term (current) use of antithrombotics/antiplatelets; D64.9 Anemia, unspecified
CPT/HCPCS: 36415; 49422; 84132; 85610; J0690; J2250; J3010